=== PATIENT | female | born 1940 | race Caucasian/White ===

== ENCOUNTER 2018-06-17 10:12 | Day surgery (SDC) | payer OTHER, BC ==
[2018-06-17 10:59] VITALS: BMI 39.6
[2018-06-17 11:57] VITALS: TEMP 97.8
[2018-06-17 13:52] VITALS: BP 149/80; PULSE 61
--- NOTE | 2018-06-18 15:27 | PATH ---
Surgical Pathology Report Patient Name: AZUCENA KAPLAN [facility]. Rec. #: [id number] /Age/Gender: 1940 (Age: 77) / F Account: [id number] Location: U-ENDOSCOPY Taken: 06/17/2018 Received: 06/17/2018 Reported: 06/18/2018 Physicians: Cr Marte M.D. Specimen(s) Received A: BX CECUM POLYP B: BX LEFT COLON Clinical History Screening, diarrhea Postoperative diagnosis: Diverticulosis, colon polyp, rule out colitis Final Diagnosis A. CECUM, POLYP, POLYPECTOMY: TUBULAR ADENOMA. B. SIGMOID AND LEFT COLON, BIOPSY: COLONIC MUCOSA WITH INTRAEPITHELIAL LYMPHOCYTOSIS AND INCREASED LYMPHOPLASMACYTIC INFILTRATE WITHIN LAMINA PROPRIA COMPATIBLE WITH CHRONIC LYMPHOCYTIC/MICROSCOPIC COLITIS IN A CONCORDANT CLINICAL SETTING. Electronically Signed Elysia Serna M.D. Gross Description A. Received in formalin, labeled "polyp from cecum" are 2 armendariz, polypoid portions of soft tissue measuring 0.5 and 0.7 cm. in greatest dimension. The specimens are submitted in toto in one cassette. B. Received in formalin, labeled "biopsy left colon and sigmoid" are 3 armendariz, irregular portions of soft tissue ranging from 0.2-0.4 cm. in greatest dimension. The specimens are submitted in toto in one cassette. /06/17/2018 saudi06/17/2018
== END 2018-06-17 13:25 | disposition home or self-care (01) ==
LOC: JASU-ENDO 10:12
PROVIDERS: ATTEND Internal Medicine Gastroenterology
PROC: 0DBM8ZX Excision of Descending Colon, Via Natural or Artificial Opening Endoscopic, Diagnostic (ICD-10-PCS; 2018-06-17)
PROC: 0DBN8ZX Excision of Sigmoid Colon, Via Natural or Artificial Opening Endoscopic, Diagnostic (ICD-10-PCS; 2018-06-17)
PROC: 0DBH8ZX Excision of Cecum, Via Natural or Artificial Opening Endoscopic, Diagnostic (ICD-10-PCS; principal; 2018-06-17 11:15)
DX: D12.0 Benign neoplasm of cecum (principal); R19.7 Diarrhea, unspecified; K57.30 Diverticulosis of large intestine without perforation or abscess without bleeding; K63.89 Other specified diseases of intestine; I10 Essential (primary) hypertension; E03.9 Hypothyroidism, unspecified
CPT/HCPCS: 88305-TC

== ENCOUNTER 2020-05-04 15:16 | Emergency (ER) | payer OTHER, BC ==
[2020-05-04] MEDS ORDERED: HEPARIN NA (PORCINE) 5,000 UNITS/ML 1ML VIAL IVPUSH PRN (15:26)
[2020-05-04] MEDS ORDERED: ASPIRIN 325 MG ENTERIC COATED TABLET (FP) PO ONE (15:26)
[2020-05-04] MEDS ORDERED: ATORVASTATIN CA 80 MG TABLET (FP) PO ONE (15:27)
[2020-05-04] MEDS ORDERED: ASPIRIN 81 MG CHEWABLE TABLETS ONE (15:30)
[2020-05-04] MEDS ORDERED: HEPARIN NA (PORCINE) 5,000 UNITS/ML 1ML VIAL ONE (15:31)
[2020-05-04] MEDS ORDERED: ONDANSETRON 4 MG/2 ML VIAL IVPUSH ONE (15:31)
[2020-05-04] MEDS ORDERED: ATORVASTATIN CA 80 MG TABLET (FP) ONE (15:31)
--- NOTE | 2020-05-04 15:32 | PDOC ---
Documentation entered by Francia Steen SCRIBE, acting as scribe for Aníbal Rosario MD. Aníbal Rosario MD: This documentation has been prepared by the Enio bhakta Ana, SCRIBE, under my direction and personally reviewed by me in its entirety. I confirm that the documentation accurately reflects all work, treatment, procedures, and medical decision making performed by me. Attending Attestation - Resident Resident Name: Andrew Holloway - ED Attending Attestation I have performed the following: I have examined & evaluated the patient, The case was reviewed & discussed with the resident, I agree w/resident's findings & plan, Exceptions are as noted - HPI HPI: 05/04/20 15:19 Patient is a 79 year old female with a significant past medical history of hypercholesterolemia, hypothyroid, hyperlipidemia, OA, colitis, tonsillectomy, and hypertension, who presents to the ED with nausea, vomiting, and lightheadedness. Pt was shopping when her symptoms began. Per EMS, pt was bradycardic to 30s in the field with otherwise normal vitals. EKG unable to obtain in field. Allergies: Sulfonamide antibiotics PCP: Dr. Johnson GI: Dr. Marte - Physicial Exam PE: 05/04/20 15:21 See resident exam - Critical Care Time Total Critical Care Time: 30 Critical Care Statement: The care of this patient involved high complexity decision making to prevent further life threatening deterioration of the patient's condition and/or to evaluate & treat vital organ system(s) failure or risk of failure. - Medical Decision Making 05/04/20 15:37 79 F with STEMI. - Aspirin, statin, brilinta, heparin - Pt accepted to [facility] lab[facility] by Dr. Quesada, interventional cards Pt's brazer crawler torch, min [place], awaiting callback 05/04/20 15:54 Pt has departed ED Discharge - Discharge Information Problems reviewed: Yes Clinical Impression/Diagnosis: STEMI (ST elevation myocardial infarction) Condition: Critical Disposition: TRANSFER ACUTE CARE/OTHER HOSP - Follow up/Referral - Patient Discharge Instructions - Post Discharge Activity
[2020-05-04] MEDS ORDERED: TICAGRELOR 60 MG TABLET PO ONE (15:39)
[2020-05-04] MEDS ORDERED: TICAGRELOR 90 MG TABLET PO ONE (15:42)
--- NOTE | 2020-05-04 15:56 | PDOC ---
History of Present Illness - General Stated Complaint: Weakness Time Seen by Provider: 05/04/20 15:19 Past History - Medical History Allergies/Adverse Reactions: Allergies Allergy/AdvReac Type Severity Reaction Status Date / Time Sulfa (Sulfonamide Allergy Mild Hives Verified 12/02/13 10:52 Antibiotics) Home Medications: Ambulatory Orders Levothyroxine [Synthroid -] 100 mcg PO DAILY 07/09/13 Liothyronine Sodium [Cytomel -] 5 mcg PO DAILY 07/09/13 Nebivolol HCl [Bystolic] 5 mg PO DAILY 07/09/13 Cholecalciferol (Vitamin D3) [Vitamin D3 -] 2,000 unit PO HS #0 tab 12/04/13 Cyclosporine [Restasis] 1 each OP DAILY 06/17/18 Bismuth Subsalicylate [Pepto-Bismol -] 1 tab PO DAILY PRN 01/19/19 Eliquis 5 mg PO BID 02/22/20 Anemia: No Asthma: Yes 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) Cardiac Disorders: Yes (afib -on eliquis) CVA: No COPD: No CHF: No Dementia: No Diabetes: No GI Disorders: Yes (colitis) Disorders: No HTN: Yes Hypercholesterolemia: Yes Liver Disease: No Seizures: No Thyroid Disease: Yes (HYPO) - Surgical History Abdominal Surgery: Yes (ECTOPIC X 2) Appendectomy: No Cardiac Surgery: No Cholecystectomy: No Lung Surgery: No Neurologic Surgery: No Orthopedic Surgery: Yes (ORIF L WRIST) - Psycho-Social/Smoking History Smoking Status: No Smoking History: Former smoker Have you smoked in the past 12 months: No Number of Cigarettes Smoked Daily: 0 If you are a former smoker, when did you quit?: 2001 Cardiac Specific PMH - Complaint Specific PMHX Pacemaker: No *Physical Exam - Vital Signs Last Vital Signs Temp Pulse Resp BP Pulse Ox 98.7 F 52 L 18 138/72 98 05/04/20 15:56 05/04/20 15:56 05/04/20 15:56 05/04/20 15:56 05/04/20 15:30 ED Treatment Course - LABORATORY CBC & Chemistry Diagram: 05/04/20 15:30 05/04/20 15:30 - ADDITIONAL ORDERS Additional order review: Laboratory Results 05/04/20 05/04/20 05/04/20 15:31 15:30 15:30 PT with INR INR PTT (Actin FS) Sodium 142 Potassium 4.5 Chloride 111 H Carbon Dioxide 19 L Anion Gap 12 BUN 19.6 H Creatinine 1.3 Est GFR (CKD-EPI)AfAm 45.83 Est GFR (CKD-EPI)NonAf 39.54 POC Glucometer 215 Random Glucose 202 H Calcium 8.7 Total Bilirubin 0.4 AST 24 ALT 25 Alkaline Phosphatase 86 Creatine Kinase 79 Troponin I 0.09 H Total Protein 6.9 Albumin 3.3 L Blood Type O POSITIVE Antibody Screen Negative 05/04/20 15:30 PT with INR 15.10 H INR 1.28 H PTT (Actin FS) 30.5 Sodium Potassium Chloride Carbon Dioxide Anion Gap BUN Creatinine Est GFR (CKD-EPI)AfAm Est GFR (CKD-EPI)NonAf POC Glucometer Random Glucose Calcium Total Bilirubin AST ALT Alkaline Phosphatase Creatine Kinase Troponin I Total Protein Albumin Blood Type Antibody Screen 05/04/20 05/04/20 15:31 15:30 RBC 4.86 MCV 86.9 MCHC 32.4 RDW 14.4 MPV 9.9 D Neutrophils % 65.5 Lymphocytes % 25.4 Monocytes % 7.3 Eosinophils % 1.4 Basophils % 0.4 POC Glucometer 215 - RADIOLOGY Radiology Studies Ordered: Category Date Time Status CHEST X-RAY PORTABLE* [RAD] Stat Radiology 05/04/20 15:23 Ordered - Medications Given in the ED: ED Medications Discontinued Medications Generic Name Dose Route Start Last Admin Trade Name Freq PRN Reason Stop Dose Admin Aspirin 325 mg 05/04/20 15:26 05/04/20 15:54 Ecotrin - PO 05/04/20 15:27 325 mg ONCE ONE Administration Atorvastatin Calcium 80 mg 05/04/20 15:27 05/04/20 15:55 Lipitor - PO 05/04/20 15:28 80 mg ONCE ONE Administration Heparin Sodium (Porcine) 5,000 unit 05/04/20 15:26 05/04/20 15:55 Heparin - IVPUSH 5,000 unit PRN PRN Administration Heparin Ondansetron HCl 4 mg 05/04/20 15:31 05/04/20 15:55 Zofran Injection IVPUSH 05/04/20 15:32 4 mg ONCE ONE Administration Ticagrelor 180 mg 05/04/20 15:39 05/04/20 15:55 Brilinta PO 05/04/20 15:40 180 mg ONCE ONE Administration Medical Decision Making - Medical Decision Making 05/04/20 15:54 79F a-fib on eliquis HTN HLD hypothyroid presenting today with fatigue, weakness, diaphoresis that started approximately 1 hour prior to arrival. No LOC. Per EMS pt was feeling week at [facility]. En route difficulty to obtain blood pressure, and pt's HR was bradycardic to the 40s. Pt given atropine with increase in heart rate. Pt took all of her morning doses of medications today. On arrival, pt assessed immediately by myself, attending, and staff. HR varying between 40s-60s. BP 140s/70s. Pt alert, oriented, protecting airway, CTAB, diaphoretic. No abdominal TTP. No leg swelling. Radial/DP pulses 2+ bilaterally. Heart regular rate and rhythm. No back pain. PERRLA. Head atraumatic/normocephalic. EKG obtained at bedside showed 49 bpm, ST elevation in II, III aVF, V3-V6, QTc 422, concerning for inferolateral STEMI. [facility] transfer center contacted. [employer] transportation arranged. Case d/w Dr. Quesada (STEMI attending) who accepts the patient in transfer. Pt started on aspirin 324mg, lipitor 80mg, heparin 5000 units, brilinta 180mg. Discharge - Discharge Information Problems reviewed: Yes Clinical Impression/Diagnosis: STEMI (ST elevation myocardial infarction) Condition: Critical Disposition: TRANSFER ACUTE CARE/OTHER HOSP - Follow up/Referral - Patient Discharge Instructions - Post Discharge Activity
[2020-05-04 16:11] LABS: BASO % 0.4 % (0-2.0); EOS % 1.4 % (0-4.5); HEMATOCRIT 42.2 % (32.4-45.2); HEMOGLOBIN 13.7 GM/dL (10.7-15.3); LYMPH % 25.4 % (8-40); MCH 28.1 pg (25.7-33.7); MCHC 32.4 g/dl (32.0-36.0); MEAN CELL VOLUME 86.9 fl (80-96); MEAN PLT VOLUME 9.9 fl (7.5-11.1); MONO % 7.3 % (3.8-10.2); NEUT % 65.5 % (42.8-82.8); PLATELET COUNT 260 K/MM3 (134-434); RBC 4.86 M/mm3 (3.60-5.2); RDW 14.4 % (11.6-15.6); WHITE BLOOD COUNT 9.8 K/mm3 (4.0-10.0)
[2020-05-04 16:15] VITALS: BMI 40.1
[2020-05-04 16:15] LABS: INR 1.28 (0.83-1.09); PROTHROMBIN TIME (PATIENT) 15.1 SEC (9.7-13.0)
[2020-05-04 16:17] LABS: ACTIVATED PTT 30.5 SECONDS (25.2-36.5)
[2020-05-04 16:53] LABS: ALBUMIN 3.3 g/dl (3.4-5.0); BILIRUBIN,TOTAL 0.4 mg/dL (0.2-1); BLOOD UREA NITROGEN 19.6 mg/dL (7-18); CALCIUM 8.7 mg/dL (8.5-10.1); CREATININE 1.3 mg/dL (0.55-1.3); POTASSIUM 4.5 mmol/L (3.5-5.1); TOT PROT 6.9 g/dl (6.4-8.2)
[2020-05-04 17:59] VITALS: BP 138/72; PULSE 52; TEMP 98.7
[2020-05-04] MEDS ORDERED: TICAGRELOR 60 MG TABLET PO SCH (22:00)
--- NOTE | 2020-05-05 12:13 | EKG ---
Test Reason : Blood Pressure : / mmHG Vent. Rate : 049 BPM Atrial Rate : 070 BPM P-R Int : 000 ms QRS Dur : 082 ms QT Int : 468 ms P-R-T Axes : 000 012 098 degrees QTc Int : 422 ms ATRIAL FIBRILLATION WITH SLOW VENTRICULAR RESPONSE ST ELEVATION CONSIDER INFERIOR INJURY OR ACUTE INFARCT ST ELEVATION CONSIDER ANTERIOR INJURY OR ACUTE INFARCT ACUTE [place] / STEMI Consider right ventricular involvement in acute inferior infarct ABNORMAL ECG WHEN COMPARED WITH ECG OF 02-DEC-2013 12:00, SIGNIFICANT CHANGES HAVE OCCURRED Confirmed by JF HAYWARD MD ([id number]) on 05/05/2020 12:13:04 PM Referred By: Confirmed By:JF HAYWARD MD
== END 2020-05-04 15:55 | disposition short-term general hospital (02) ==
LOC: JER 15:16
PROC: 3E0333Z Introduction of Anti-inflammatory into Peripheral Vein, Percutaneous Approach (ICD-10-PCS; principal; 2020-05-04)
DX: I21.3 ST elevation (STEMI) myocardial infarction of unspecified site (principal)
CPT/HCPCS: 36415; 80053; 82550; 82962; 84484; 85025; 85610; 85730; 86850; 86900; 86901; 93005; 93010; 99291; J1644

== ENCOUNTER 2020-11-08 04:25 | Day surgery (SDC) | payer OTHER, BC ==
[2020-11-07 12:40] VITALS: BMI 38.2
[2020-11-08] MEDS ORDERED: ACETAMINOPHEN 500 MG TABLET (FP) PO PRN (09:17)
[2020-11-08] MEDS ORDERED: LACTATED RINGERS SOLUTION 1,000 ML IV SCH (09:30)
[2020-11-08] MEDS ORDERED: MIDAZOLAM HCL 2 MG/2 ML SINGLE DOSE VIAL ONE (09:35)
[2020-11-08] MEDS ORDERED: PROPOFOL 20 ML ONE (09:35)
[2020-11-08] MEDS ORDERED: ceFAZolin SODIUM 1 GM VIAL ONE (09:44)
[2020-11-08] MEDS ORDERED: SODIUM CHLORIDE 0.9% P/F 10 ML VIAL IJ ONE (09:44)
[2020-11-08] MEDS ORDERED: LIDOCAINE HCL/PF 2% SDV 5ML VIAL ONE (09:46)
[2020-11-08] MEDS ORDERED: ceFAZolin SODIUM 1 GM VIAL IVPB ONE (09:50)
[2020-11-08] MEDS ORDERED: KETOROLAC TROMETHAMINE 30 MG/1 ML VIAL ONE (09:56)
[2020-11-08 12:09] VITALS: BP 124/83; PULSE 72; TEMP 96.4
== END 2020-11-08 12:46 | disposition home or self-care (01) ==
LOC: JASU-SURG 04:25
PROVIDERS: ATTEND Urology
PROC: 0TF3XZZ Fragmentation in Right Kidney Pelvis, External Approach (ICD-10-PCS; principal; 2020-11-08 09:00)
DX: N20.0 Calculus of kidney (principal)

== ENCOUNTER 2022-03-15 04:36 | Day surgery (SDC) | payer OTHER, BC ==
[2022-03-13 15:22] VITALS: BMI 39.9
[2022-03-15] MEDS ORDERED: ETOMIDATE 20 MG/10 ML AMPUL IVPUSH ONE (10:37)
[2022-03-15 11:21] VITALS: TEMP 98.7
[2022-03-15 12:11] VITALS: BP 155/78; PULSE 90
== END 2022-03-15 12:24 | disposition home or self-care (01) ==
LOC: JASU-ENDO 04:36
PROVIDERS: ATTEND Internal Medicine Gastroenterology
PROC: 0DJD8ZZ Inspection of Lower Intestinal Tract, Via Natural or Artificial Opening Endoscopic (ICD-10-PCS; principal; 2022-03-15 11:00)
DX: Z12.11 Encounter for screening for malignant neoplasm of colon (principal); Z86.010 Personal history of colon polyps; K57.30 Diverticulosis of large intestine without perforation or abscess without bleeding

== ENCOUNTER 2023-08-01 12:50 | Emergency (ER) | payer OTHER, BC ==
[2023-08-01] MEDS ORDERED: MECLIZINE HCL 25 MG TABLET (FP) PO ONE (13:50)
[2023-08-01] MEDS ORDERED: METOCLOPRAMIDE HCL INJECTION 10 MG/2 ML VIAL IVPB ONE (13:50)
[2023-08-01 13:57] VITALS: RESP 18; BMI 37.6
[2023-08-01 14:14] LABS: BASO % 0.8 % (0-2.0); EOS % 2.1 % (0-4.5); HEMATOCRIT 30.2 % (32.4-45.2); HEMOGLOBIN 10.2 GM/dL (10.7-15.3); MCH 30.5 pg (25.7-33.7); MCHC 33.7 g/dl (32.0-36.0); MEAN CELL VOLUME 90.5 fl (80-96); MEAN PLT VOLUME 9.6 fl (7.5-11.1); MONO % 11.5 % (3.8-10.2); NEUT % 53.6 % (42.8-82.8); PLATELET COUNT 209 10^3/uL (134-434); RBC 3.33 M/mm3 (3.60-5.2); RDW 14.9 % (11.6-15.6); WHITE BLOOD COUNT 7.9 K/mm3 (4.0-10.0)
[2023-08-01 14:29] LABS: POTASSIUM 4.4 mmol/L (3.5-5.1)
[2023-08-01 14:31] LABS: CALCIUM 9.2 mg/dL (8.5-10.1)
[2023-08-01 14:32] LABS: ALBUMIN 3.3 g/dl (3.4-5.0); BLOOD UREA NITROGEN 23.6 mg/dL (7-18); MAGNESIUM 2.2 mg/dL (1.8-2.4)
[2023-08-01 14:37] LABS: BILIRUBIN,TOTAL 0.4 mg/dL (0.2-1); TOT PROT 6.7 g/dl (6.4-8.2)
[2023-08-01] MEDS ORDERED: MECLIZINE HCL 25 MG TABLET (FP) ONE (14:39)
[2023-08-01] MEDS ORDERED: METOCLOPRAMIDE HCL INJECTION 10 MG/2 ML VIAL ONE (14:39)
[2023-08-01 17:40] LABS: EPI CELLS 7 /uL (0-25.1); HYALINE CASTS 0 /uL (0-3.1); URINE APPEARANCE CLEAR; URINE BACTERIA 8316 /uL (0-1359); URINE BILIRUBIN NEGATIVE (NEGATIVE); URINE COLOR YELLOW; URINE GLUCOSE (UA) NEGATIVE (NEGATIVE); URINE KETONE NEGATIVE (NEGATIVE); URINE LEUK ESTERASE 1+ (NEGATIVE); URINE NITRITE NEGATIVE (NEGATIVE); URINE PROTEIN NEGATIVE (NEGATIVE); URINE RBC 12 /uL (0-23.9); URINE UROBILINOGEN 0.2 mg/dL (0.2-1.0); URINE WBC 41 /uL (0-25.8)
[2023-08-01 18:07] VITALS: BP 114/42; PULSE 65; TEMP 97.9
== END 2023-08-01 18:47 | disposition home or self-care (01) ==
LOC: JER 12:50
PROC: 3E033GC Introduction of Other Therapeutic Substance into Peripheral Vein, Percutaneous Approach (ICD-10-PCS; principal; 2023-08-01)
DX: R42 Dizziness and giddiness (principal); R11.0 Nausea; Z20.822 Contact with and (suspected) exposure to COVID-19
CPT/HCPCS: 0241U-QW; 36415; 70450-TC; 71045-TC-FY; 80053; 81003; 83735; 84443; 84484; 85025; 87086; 87186; 93005; 93010; 99285-25

== ENCOUNTER 2023-08-08 11:07 | Inpatient (IN) | payer OTHER, BC ==
[2023-08-08] MEDS ORDERED: LIDOCAINE 5% TOPICAL PATCH TP ONE (12:46)
[2023-08-08] MEDS ORDERED: ACETAMINOPHEN 1000 MG/100 ML BAG IVPB ONE (12:46)
[2023-08-08] MEDS ORDERED: ACETAMINOPHEN INJECTION 100 ML IVPB ONE (12:56)
[2023-08-08] MEDS ORDERED: LIDOCAINE 4% PATCH TP ONE (12:56)
[2023-08-08 13:56] LABS: BASO % 0.4 % (0-2.0); EOS % 0.2 % (0-4.5); HEMATOCRIT 26.3 % (32.4-45.2); HEMOGLOBIN 8.2 GM/dL (10.7-15.3); LYMPH % 11.9 % (8-40); MCH 28.8 pg (25.7-33.7); MCHC 31.2 g/dl (32.0-36.0); MEAN CELL VOLUME 92.4 fl (80-96); MEAN PLT VOLUME 10.1 fl (7.5-11.1); MONO % 9.4 % (3.8-10.2); NEUT % 78.1 % (42.8-82.8); PLATELET COUNT 258 10^3/uL (134-434); RBC 2.85 M/mm3 (3.60-5.2); RDW 15.3 % (11.6-15.6); WHITE BLOOD COUNT 13.9 K/mm3 (4.0-10.0)
[2023-08-08 14:03] LABS: INR 1.61 (0.83-1.09); PROTHROMBIN TIME (PATIENT) 18.6 SEC (9.7-13.0)
[2023-08-08 14:06] LABS: ACTIVATED PTT 31.1 SECONDS (25.2-36.5)
[2023-08-08 14:38] LABS: POTASSIUM 4.2 mmol/L (3.5-5.1)
[2023-08-08 14:40] LABS: CALCIUM 9.3 mg/dL (8.5-10.1)
[2023-08-08 14:41] LABS: ALBUMIN 3.6 g/dl (3.4-5.0); BLOOD UREA NITROGEN 29.7 mg/dL (7-18)
[2023-08-08 14:44] LABS: CREATININE 1.1 mg/dL (0.55-1.3)
[2023-08-08 14:45] LABS: BILIRUBIN,TOTAL 0.7 mg/dL (0.2-1); TOT PROT 7.1 g/dl (6.4-8.2)
[2023-08-08 15:15] LABS: EPI CELLS 26 /uL (0-25.1); HYALINE CASTS 1 /uL (0-3.1); PH,URINE 5.5 (5.0-8.0); URINE APPEARANCE CLEAR; URINE BACTERIA >9,000 /uL (0-1359); URINE BILIRUBIN NEGATIVE (NEGATIVE); URINE COLOR YELLOW; URINE GLUCOSE (UA) NEGATIVE (NEGATIVE); URINE KETONE NEGATIVE (NEGATIVE); URINE LEUK ESTERASE 1+ (NEGATIVE); URINE NITRITE POSITIVE (NEGATIVE); URINE PROTEIN NEGATIVE (NEGATIVE); URINE RBC 9 /uL (0-23.9); URINE WBC 100 /uL (0-25.8)
[2023-08-08] MEDS ORDERED: PANTOPRAZOLE SODIUM 40 MG VIAL ONE (17:19)
[2023-08-08] MEDS: PANTOPRAZOLE SODIUM 40 MG VIAL IVPUSH SCH (17:27)
[2023-08-08] MEDS: D5-1/2NS+20 MEQ KCL - 20 MEQ/1,000 ML INFUS.BAG IV SCH (17:27)
[2023-08-08 21:55] LABS: BASO % 0.4 % (0-2.0); EOS % 0.3 % (0-4.5); HEMATOCRIT 26.6 % (32.4-45.2); HEMOGLOBIN 8.5 GM/dL (10.7-15.3); LYMPH % 15.6 % (8-40); MCH 29.2 pg (25.7-33.7); MCHC 31.9 g/dl (32.0-36.0); MEAN CELL VOLUME 91.5 fl (80-96); MEAN PLT VOLUME 9.8 fl (7.5-11.1); MONO % 16.3 % (3.8-10.2); NEUT % 67.4 % (42.8-82.8); PLATELET COUNT 257 10^3/uL (134-434); RDW 15.4 % (11.6-15.6)
[2023-08-08] MEDS ORDERED: LIDOCAINE PATCH REMOVAL MC ONE (22:00)
[2023-08-08] MEDS: ATORVASTATIN CA 40 MG TABLET (FP) PO SCH (22:47)
[2023-08-09 00:23] VITALS: BMI 36.8
[2023-08-09] MEDS: LEVOTHYROXINE NA 125 MCG TABLET (FP) PO SCH (07:11)
[2023-08-09] MEDS: PANTOPRAZOLE SODIUM 40 MG VIAL IVPUSH SCH ×2 (09:49→22:23)
[2023-08-09] MEDS: EZETIMIBE 10 MG TABLET (FP) PO SCH (09:49)
[2023-08-09 12:52] LABS: BASO % 0.5 % (0-2.0); EOS % 0.5 % (0-4.5); HEMATOCRIT 21.3 % (32.4-45.2); LYMPH % 19.5 % (8-40); MCH 29.7 pg (25.7-33.7); MCHC 32.5 g/dl (32.0-36.0); MEAN CELL VOLUME 91.4 fl (80-96); MEAN PLT VOLUME 9.9 fl (7.5-11.1); MONO % 10.7 % (3.8-10.2); NEUT % 68.8 % (42.8-82.8); PLATELET COUNT 213 10^3/uL (134-434); RBC 2.33 M/mm3 (3.60-5.2); WHITE BLOOD COUNT 10.4 K/mm3 (4.0-10.0)
[2023-08-09 13:03] LABS: HEMOGLOBIN 6.9 GM/dL (10.7-15.3)
[2023-08-09 13:18] LABS: POTASSIUM 3.9 mmol/L (3.5-5.1)
[2023-08-09 13:21] LABS: CALCIUM 8.3 mg/dL (8.5-10.1)
[2023-08-09 13:22] LABS: BLOOD UREA NITROGEN 27.8 mg/dL (7-18); MAGNESIUM 2.2 mg/dL (1.8-2.4)
[2023-08-09 13:25] LABS: CREATININE 0.9 mg/dL (0.55-1.3)
[2023-08-09 13:26] LABS: BILIRUBIN,TOTAL 0.5 mg/dL (0.2-1); TOT PROT 6.1 g/dl (6.4-8.2)
[2023-08-09 13:35] LABS: ALBUMIN 2.9 g/dl (3.4-5.0)
[2023-08-09] MEDS: CEFTRIAXONE 1 GM in DEXTROSE 5%-WATER - 50 ML IVPB SCH (14:09)
[2023-08-09] MEDS ORDERED: COLCHICINE 0.6 MG TAB PO ONE ×2 (14:45→15:00)
[2023-08-09 21:22] LABS: URIC ACID 5.5 mg/dL (2.6-7.2)
[2023-08-09] MEDS: ATORVASTATIN CA 40 MG TABLET (FP) PO SCH (22:23)
[2023-08-10] MEDS: D5-1/2NS+20 MEQ KCL - 20 MEQ/1,000 ML INFUS.BAG IV SCH ×2 (01:51→06:07)
[2023-08-10] MEDS: LEVOTHYROXINE NA 125 MCG TABLET (FP) PO SCH (06:05)
[2023-08-10 09:04] LABS: BASO % 0.5 % (0-2.0); EOS % 0.5 % (0-4.5); HEMATOCRIT 23.6 % (32.4-45.2); HEMOGLOBIN 7.8 GM/dL (10.7-15.3); MCH 26.8 pg (25.7-33.7); MCHC 33.1 g/dl (32.0-36.0); MEAN CELL VOLUME 80.8 fl (80-96); MEAN PLT VOLUME 8.9 fl (7.5-11.1); MONO % 14.5 % (3.8-10.2); NEUT % 64.5 % (42.8-82.8); PLATELET COUNT 195 10^3/uL (134-434); RBC 2.91 M/mm3 (3.60-5.2); WHITE BLOOD COUNT 11.5 K/mm3 (4.0-10.0)
[2023-08-10] MEDS: PANTOPRAZOLE SODIUM 40 MG VIAL IVPUSH SCH ×2 (09:32→21:32)
[2023-08-10] MEDS: CEFTRIAXONE 1 GM in DEXTROSE 5%-WATER - 50 ML IVPB SCH (09:32)
[2023-08-10] MEDS: EZETIMIBE 10 MG TABLET (FP) PO SCH (09:33)
[2023-08-10 09:41] LABS: POTASSIUM 4.2 mmol/L (3.5-5.1)
[2023-08-10 09:52] LABS: BLOOD UREA NITROGEN 19.8 mg/dL (7-18); CALCIUM 8.5 mg/dL (8.5-10.1)
[2023-08-10 09:54] LABS: CREATININE 0.9 mg/dL (0.55-1.3)
[2023-08-10 09:55] LABS: ALBUMIN 2.7 g/dl (3.4-5.0)
[2023-08-10 09:56] LABS: BILIRUBIN,TOTAL 1.1 mg/dL (0.2-1); TOT PROT 5.8 g/dl (6.4-8.2); URIC ACID 4.9 mg/dL (2.6-7.2)
[2023-08-10] MEDS ORDERED: COLCHICINE 0.6 MG TAB PO SCH (10:00)
[2023-08-10 10:41] LABS: ANISOCYTOSIS 3+; MACROCYTOSIS 0
[2023-08-10 21:09] LABS: HEMATOCRIT 22.9 % (32.4-45.2); HEMOGLOBIN 7.6 GM/dL (10.7-15.3); MCH 27.1 pg (25.7-33.7); MCHC 33.3 g/dl (32.0-36.0); MEAN CELL VOLUME 81.3 fl (80-96); MEAN PLT VOLUME 9.3 fl (7.5-11.1); PLATELET COUNT 192 10^3/uL (134-434); RBC 2.82 M/mm3 (3.60-5.2); RDW 26.4 % (11.6-15.6); WHITE BLOOD COUNT 9.9 K/mm3 (4.0-10.0)
[2023-08-10] MEDS: ATORVASTATIN CA 40 MG TABLET (FP) PO SCH (21:31)
[2023-08-11] MEDS: LEVOTHYROXINE NA 125 MCG TABLET (FP) PO SCH (06:09)
[2023-08-11 09:17] LABS: BASO % 0.4 % (0-2.0); EOS % 1.3 % (0-4.5); HEMATOCRIT 21.9 % (32.4-45.2); HEMOGLOBIN 7.4 GM/dL (10.7-15.3); LYMPH % 19.8 % (8-40); MCH 27.3 pg (25.7-33.7); MCHC 33.7 g/dl (32.0-36.0); MEAN PLT VOLUME 8.9 fl (7.5-11.1); MONO % 13.3 % (3.8-10.2); NEUT % 65.2 % (42.8-82.8); PLATELET COUNT 196 10^3/uL (134-434); RDW 25.8 % (11.6-15.6); WHITE BLOOD COUNT 8.4 K/mm3 (4.0-10.0)
[2023-08-11] MEDS: PANTOPRAZOLE SODIUM 40 MG VIAL IVPUSH SCH ×2 (09:23→21:32)
[2023-08-11] MEDS: CEFTRIAXONE 1 GM in DEXTROSE 5%-WATER - 50 ML IVPB SCH (09:23)
[2023-08-11] MEDS: EZETIMIBE 10 MG TABLET (FP) PO SCH (09:23)
[2023-08-11] MEDS: D5-1/2NS+20 MEQ KCL - 20 MEQ/1,000 ML INFUS.BAG IV SCH ×2 (09:31→18:07)
[2023-08-11 09:47] LABS: POTASSIUM 3.9 mmol/L (3.5-5.1)
[2023-08-11 09:50] LABS: CALCIUM 8.4 mg/dL (8.5-10.1)
[2023-08-11 09:51] LABS: ALBUMIN 2.6 g/dl (3.4-5.0); BLOOD UREA NITROGEN 13.7 mg/dL (7-18)
[2023-08-11 09:56] LABS: BILIRUBIN,TOTAL 0.6 mg/dL (0.2-1); TOT PROT 5.7 g/dl (6.4-8.2)
[2023-08-11] MEDS ORDERED: PEG 3350/NA SULF BICARB CL/KCL 4000 ML SOLN.RECON PO ONE (17:00)
[2023-08-11 21:23] LABS: HEMATOCRIT 27.5 % (32.4-45.2); HEMOGLOBIN 8.8 GM/dL (10.7-15.3); MCH 26.4 pg (25.7-33.7); MCHC 31.9 g/dl (32.0-36.0); MEAN CELL VOLUME 82.7 fl (80-96); PLATELET COUNT 260 10^3/uL (134-434); RBC 3.32 M/mm3 (3.60-5.2); RDW 25.4 % (11.6-15.6); WHITE BLOOD COUNT 11.8 K/mm3 (4.0-10.0)
[2023-08-11] MEDS: ATORVASTATIN CA 40 MG TABLET (FP) PO SCH (21:32)
[2023-08-12] MEDS: LEVOTHYROXINE NA 125 MCG TABLET (FP) PO SCH (06:42)
[2023-08-12] MEDS: EZETIMIBE 10 MG TABLET (FP) PO SCH (09:27)
[2023-08-12] MEDS: CEFTRIAXONE 1 GM in DEXTROSE 5%-WATER - 50 ML IVPB SCH (09:30)
[2023-08-12] MEDS: PANTOPRAZOLE SODIUM 40 MG VIAL IVPUSH SCH (09:31)
[2023-08-12] MEDS: COLCHICINE 0.6 MG TAB PO SCH ×2 (17:22→17:24)
[2023-08-12] MEDS: D5-1/2NS+20 MEQ KCL - 20 MEQ/1,000 ML INFUS.BAG IV SCH (17:40)
[2023-08-12] MEDS: ACETAMINOPHEN 325 MG TABLET (FP) PO PRN (17:41)
[2023-08-12 21:00] LABS: HEMATOCRIT 22.5 % (32.4-45.2); HEMOGLOBIN 7.3 GM/dL (10.7-15.3); MCH 26.8 pg (25.7-33.7); MCHC 32.6 g/dl (32.0-36.0); MEAN CELL VOLUME 82.1 fl (80-96); MEAN PLT VOLUME 8.9 fl (7.5-11.1); PLATELET COUNT 238 10^3/uL (134-434); RBC 2.74 M/mm3 (3.60-5.2); RDW 24.5 % (11.6-15.6); WHITE BLOOD COUNT 9.8 K/mm3 (4.0-10.0)
[2023-08-12] MEDS: ATORVASTATIN CA 40 MG TABLET (FP) PO SCH (21:40)
[2023-08-13] MEDS: LEVOTHYROXINE NA 125 MCG TABLET (FP) PO SCH (06:54)
[2023-08-13 10:00] LABS: ALBUMIN 2.7 g/dl (3.4-5.0); CREATININE 0.9 mg/dL (0.55-1.3); POTASSIUM 3.9 mmol/L (3.5-5.1)
[2023-08-13] MEDS ORDERED: COLCHICINE 0.6 MG TAB PO SCH (10:00)
[2023-08-13 10:01] LABS: BLOOD UREA NITROGEN 11.8 mg/dL (7-18)
[2023-08-13 10:03] LABS: CALCIUM 8.3 mg/dL (8.5-10.1)
[2023-08-13 10:08] LABS: BILIRUBIN,TOTAL 0.4 mg/dL (0.2-1)
[2023-08-13] MEDS: PANTOPRAZOLE 20 MG TABLET PO SCH (10:45)
[2023-08-13] MEDS: CEFTRIAXONE 1 GM in DEXTROSE 5%-WATER - 50 ML IVPB SCH (10:45)
[2023-08-13] MEDS: EZETIMIBE 10 MG TABLET (FP) PO SCH (10:46)
[2023-08-13 12:08] LABS: BASO % 0.7 % (0-2.0); HEMATOCRIT 21.3 % (32.4-45.2); LYMPH % 17.2 % (8-40); MCH 26.5 pg (25.7-33.7); MCHC 31.9 g/dl (32.0-36.0); MEAN CELL VOLUME 83.2 fl (80-96); MEAN PLT VOLUME 8.5 fl (7.5-11.1); MONO % 10.6 % (3.8-10.2); NEUT % 69.5 % (42.8-82.8); PLATELET COUNT 235 10^3/uL (134-434); RBC 2.56 M/mm3 (3.60-5.2); RDW 23.8 % (11.6-15.6); WHITE BLOOD COUNT 7.5 K/mm3 (4.0-10.0)
[2023-08-13 12:22] LABS: HEMOGLOBIN 6.8 GM/dL (10.7-15.3)
[2023-08-13 12:39] LABS: ANISOCYTOSIS 2+; MACROCYTOSIS 0
[2023-08-13] MEDS: ACETAMINOPHEN 325 MG TABLET (FP) PO PRN (18:06)
[2023-08-13] MEDS: D5-1/2NS+20 MEQ KCL - 20 MEQ/1,000 ML INFUS.BAG IV SCH (19:50)
[2023-08-13 21:30] LABS: HEMATOCRIT 26.9 % (32.4-45.2); HEMOGLOBIN 8.9 GM/dL (10.7-15.3); MCH 27.6 pg (25.7-33.7); MCHC 33.1 g/dl (32.0-36.0); MEAN CELL VOLUME 83.4 fl (80-96); MEAN PLT VOLUME 8.9 fl (7.5-11.1); PLATELET COUNT 224 10^3/uL (134-434); RBC 3.23 M/mm3 (3.60-5.2); RDW 21.8 % (11.6-15.6); WHITE BLOOD COUNT 8.7 K/mm3 (4.0-10.0)
[2023-08-13] MEDS: ATORVASTATIN CA 40 MG TABLET (FP) PO SCH (21:49)
[2023-08-14] MEDS: LEVOTHYROXINE NA 125 MCG TABLET (FP) PO SCH (06:19)
[2023-08-14] MEDS: D5-1/2NS+20 MEQ KCL - 20 MEQ/1,000 ML INFUS.BAG IV SCH ×2 (06:41→18:02)
[2023-08-14] MEDS: CEFTRIAXONE 1 GM in DEXTROSE 5%-WATER - 50 ML IVPB SCH (09:42)
[2023-08-14] MEDS: PANTOPRAZOLE 20 MG TABLET PO SCH (09:43)
[2023-08-14] MEDS: EZETIMIBE 10 MG TABLET (FP) PO SCH (09:44)
[2023-08-14 10:15] LABS: BASO % 0.6 % (0-2.0); HEMOGLOBIN 9.2 GM/dL (10.7-15.3); MCH 27.5 pg (25.7-33.7); MCHC 32.9 g/dl (32.0-36.0); MEAN CELL VOLUME 83.7 fl (80-96); MEAN PLT VOLUME 8.4 fl (7.5-11.1); MONO % 8.6 % (3.8-10.2); NEUT % 67.8 % (42.8-82.8); PLATELET COUNT 244 10^3/uL (134-434); RBC 3.34 M/mm3 (3.60-5.2); WHITE BLOOD COUNT 8.3 K/mm3 (4.0-10.0)
[2023-08-14 11:00] LABS: POTASSIUM 4.2 mmol/L (3.5-5.1)
[2023-08-14 11:12] LABS: CALCIUM 8.6 mg/dL (8.5-10.1)
[2023-08-14 11:13] LABS: ALBUMIN 2.6 g/dl (3.4-5.0); BLOOD UREA NITROGEN 15.5 mg/dL (7-18)
[2023-08-14 11:16] LABS: CREATININE 0.9 mg/dL (0.55-1.3)
[2023-08-14 11:17] LABS: BILIRUBIN,TOTAL 0.6 mg/dL (0.2-1)
[2023-08-14] MEDS: COLCHICINE 0.6 MG CAP PO SCH ×2 (12:46→18:17)
[2023-08-14] MEDS: ACETAMINOPHEN 325 MG TABLET (FP) PO PRN (17:56)
[2023-08-14 19:09] LABS: HEMATOCRIT 27.9 % (32.4-45.2); HEMOGLOBIN 9.1 GM/dL (10.7-15.3); MCH 27.1 pg (25.7-33.7); MCHC 32.5 g/dl (32.0-36.0); MEAN CELL VOLUME 83.5 fl (80-96); MEAN PLT VOLUME 8.7 fl (7.5-11.1); PLATELET COUNT 252 10^3/uL (134-434); RBC 3.35 M/mm3 (3.60-5.2); RDW 21.2 % (11.6-15.6); WHITE BLOOD COUNT 8.8 K/mm3 (4.0-10.0)
[2023-08-14] MEDS: ATORVASTATIN CA 40 MG TABLET (FP) PO SCH (21:37)
[2023-08-15] MEDS: LEVOTHYROXINE NA 125 MCG TABLET (FP) PO SCH (06:03)
[2023-08-15 08:41] LABS: BASO % 0.7 % (0-2.0); EOS % 4.4 % (0-4.5); HEMATOCRIT 26.1 % (32.4-45.2); HEMOGLOBIN 8.8 GM/dL (10.7-15.3); LYMPH % 20.9 % (8-40); MCH 27.9 pg (25.7-33.7); MCHC 33.6 g/dl (32.0-36.0); MEAN CELL VOLUME 83.2 fl (80-96); MEAN PLT VOLUME 8.8 fl (7.5-11.1); MONO % 10.4 % (3.8-10.2); NEUT % 63.6 % (42.8-82.8); PLATELET COUNT 241 10^3/uL (134-434); RBC 3.14 M/mm3 (3.60-5.2); RDW 21.3 % (11.6-15.6); WHITE BLOOD COUNT 7.7 K/mm3 (4.0-10.0)
[2023-08-15 09:04] LABS: POTASSIUM 4.6 mmol/L (3.5-5.1)
[2023-08-15 09:26] LABS: ALBUMIN 2.4 g/dl (3.4-5.0); CALCIUM 9.4 mg/dL (8.5-10.1)
[2023-08-15 09:28] LABS: BLOOD UREA NITROGEN 18.8 mg/dL (7-18)
[2023-08-15 09:31] LABS: BILIRUBIN,TOTAL 0.5 mg/dL (0.2-1); TOT PROT 5.5 g/dl (6.4-8.2)
[2023-08-15] MEDS ORDERED: COLCHICINE 0.6 MG CAP PO SCH (10:00)
[2023-08-15] MEDS: EZETIMIBE 10 MG TABLET (FP) PO SCH (10:22)
[2023-08-15] MEDS: PANTOPRAZOLE 20 MG TABLET PO SCH (10:22)
[2023-08-15] MEDS: CEFTRIAXONE 1 GM in DEXTROSE 5%-WATER - 50 ML IVPB SCH (11:03)
[2023-08-15] MEDS ORDERED: CEFUROXIME AXETIL 500 MG TABLET PO SCH (12:00)
[2023-08-15 14:00] VITALS: BP 158/75; PULSE 84; RESP 16; TEMP 97.5
== END 2023-08-15 15:11 | disposition home or self-care (01) | DRG 378 ==
LOC: JER 11:07 → JERBED 14:20 → J8W 20:48
PROVIDERS: ADMIT Family Medicine
PROC: 30233N1 Transfusion of Nonautologous Red Blood Cells into Peripheral Vein, Percutaneous Approach (ICD-10-PCS; principal; 2023-08-09)
PROC: 0DBH8ZX Excision of Cecum, Via Natural or Artificial Opening Endoscopic, Diagnostic (ICD-10-PCS; 2023-08-12)
PROC: 0DB98ZX Excision of Duodenum, Via Natural or Artificial Opening Endoscopic, Diagnostic (ICD-10-PCS; 2023-08-12)
PROC: 0DB68ZX Excision of Stomach, Via Natural or Artificial Opening Endoscopic, Diagnostic (ICD-10-PCS; 2023-08-12)
PROC: 0DB58ZX Excision of Esophagus, Via Natural or Artificial Opening Endoscopic, Diagnostic (ICD-10-PCS; 2023-08-12)
DX: K57.31 Diverticulosis of large intestine without perforation or abscess with bleeding (principal); D62 Acute posthemorrhagic anemia; I13.0 Hypertensive heart and chronic kidney disease with heart failure and stage 1 through stage 4 chronic kidney disease, or unspecified chronic kidney disease; I50.32 Chronic diastolic (congestive) heart failure; K25.9 Gastric ulcer, unspecified as acute or chronic, without hemorrhage or perforation; D12.0 Benign neoplasm of cecum; I48.91 Unspecified atrial fibrillation; E78.5 Hyperlipidemia, unspecified; K44.9 Diaphragmatic hernia without obstruction or gangrene; E03.9 Hypothyroidism, unspecified; I25.2 Old myocardial infarction; I25.10 Atherosclerotic heart disease of native coronary artery without angina pectoris; K57.90 Diverticulosis of intestine, part unspecified, without perforation or abscess without bleeding; K64.4 Residual hemorrhoidal skin tags; M10.9 Gout, unspecified; M19.011 Primary osteoarthritis, right shoulder; M19.021 Primary osteoarthritis, right elbow; N18.9 Chronic kidney disease, unspecified; E66.9 Obesity, unspecified; Z68.36 Body mass index [BMI] 36.0-36.9, adult; Z95.5 Presence of coronary angioplasty implant and graft
CPT/HCPCS: 0241U-QW; 36415; 36430; 73030-TC-RT-FY; 73070-TC-RT-FY; 74177-TC; 80053; 81003; 82272; 83605; 83735; 84443; 84550; 85025; 85027; 85610; 85651; 85730; 86140; 86850; 86900; 86901; 86922; 87086; 88305-TC; 93005; 93010; 93971; 97116-GP; 99285-25; P9058; Q9967

== ENCOUNTER 2023-09-11 12:36 | Inpatient (IN) | payer OTHER, BC ==
[2023-09-11 13:06] VITALS: BMI 37.6
[2023-09-11 14:28] LABS: BASO % 0.6 % (0-2.0); EOS % 1.6 % (0-4.5); HEMATOCRIT 31.6 % (32.4-45.2); LYMPH % 22.7 % (8-40); MCHC 31.7 g/dl (32.0-36.0); MEAN CELL VOLUME 85.1 fl (80-96); MEAN PLT VOLUME 9.2 fl (7.5-11.1); MONO % 9.3 % (3.8-10.2); NEUT % 65.8 % (42.8-82.8); PLATELET COUNT 219 10^3/uL (134-434); RBC 3.71 M/mm3 (3.60-5.2); RDW 18.4 % (11.6-15.6); WHITE BLOOD COUNT 9.9 K/mm3 (4.0-10.0)
[2023-09-11 14:36] LABS: INR 1.18 (0.83-1.09); PROTHROMBIN TIME (PATIENT) 13.7 SEC (9.7-13.0)
[2023-09-11 14:39] LABS: ACTIVATED PTT 30.2 SECONDS (25.2-36.5)
[2023-09-11 14:47] LABS: POTASSIUM 4.5 mmol/L (3.5-5.1)
[2023-09-11 14:50] LABS: CALCIUM 9.2 mg/dL (8.5-10.1)
[2023-09-11 14:51] LABS: ALBUMIN 3.6 g/dl (3.4-5.0); BLOOD UREA NITROGEN 33.9 mg/dL (7-18)
[2023-09-11 14:54] LABS: CREATININE 1.4 mg/dL (0.55-1.3)
[2023-09-11 14:56] LABS: BILIRUBIN,TOTAL 0.7 mg/dL (0.2-1); TOT PROT 7.5 g/dl (6.4-8.2)
[2023-09-11 15:05] LABS: LACTIC ACID 2.5 mmol/L (0.4-2.0)
[2023-09-11] MEDS ORDERED: SODIUM CHLORIDE 1,000 ML IV STA (16:46)
[2023-09-11 20:40] LABS: BASO % 0.7 % (0-2.0); EOS % 1.5 % (0-4.5); HEMATOCRIT 29.1 % (32.4-45.2); HEMOGLOBIN 9.5 GM/dL (10.7-15.3); LYMPH % 29.3 % (8-40); MCH 27.3 pg (25.7-33.7); MCHC 32.6 g/dl (32.0-36.0); MEAN CELL VOLUME 83.7 fl (80-96); MEAN PLT VOLUME 9.5 fl (7.5-11.1); MONO % 9.2 % (3.8-10.2); NEUT % 59.3 % (42.8-82.8); PLATELET COUNT 194 10^3/uL (134-434); RBC 3.47 M/mm3 (3.60-5.2); RDW 18.7 % (11.6-15.6)
[2023-09-11] MEDS: PANTOPRAZOLE SODIUM 40 MG VIAL IVPUSH SCH (23:53)
[2023-09-12 01:59] LABS: RETICULOCYTES 1.56 % (0.5-1.5)
[2023-09-12] MEDS: LEVOTHYROXINE NA 125 MCG TABLET (FP) PO SCH (06:39)
[2023-09-12 07:35] LABS: HEMATOCRIT 26.2 % (32.4-45.2); HEMOGLOBIN 8.5 GM/dL (10.7-15.3); MCH 27.3 pg (25.7-33.7); MCHC 32.3 g/dl (32.0-36.0); MEAN CELL VOLUME 84.5 fl (80-96); MEAN PLT VOLUME 9.6 fl (7.5-11.1); PLATELET COUNT 166 10^3/uL (134-434); RDW 18.2 % (11.6-15.6); WHITE BLOOD COUNT 7.6 K/mm3 (4.0-10.0)
[2023-09-12 08:18] LABS: ALBUMIN 2.9 g/dl (3.4-5.0); CALCIUM 8.3 mg/dL (8.5-10.1)
[2023-09-12 08:20] LABS: URIC ACID 6.2 mg/dL (2.6-7.2)
[2023-09-12 08:21] LABS: CREATININE 1.1 mg/dL (0.55-1.3)
[2023-09-12 08:23] LABS: BILIRUBIN,TOTAL 0.5 mg/dL (0.2-1); TOT PROT 6.1 g/dl (6.4-8.2)
[2023-09-12] MEDS: EZETIMIBE 10 MG TABLET (FP) PO SCH (09:05)
[2023-09-12] MEDS: CHOLECALCIFEROL (VIT D3) 1,000 UNIT (25 MCG) TABLET PO SCH (09:05)
[2023-09-12] MEDS: PANTOPRAZOLE SODIUM 40 MG VIAL IVPUSH SCH (09:05)
[2023-09-12 09:12] LABS: POTASSIUM 4.4 mmol/L (3.5-5.1)
[2023-09-12] MEDS ORDERED: IRON SUCROSE INJECTION 200 MG in SODIUM CHLORIDE 90 ML IVPB ONE (13:00)
[2023-09-12] MEDS ORDERED: BISACODYL 5 MG TABLET.DR (FP) PO ONE (16:00)
[2023-09-12] MEDS ORDERED: PEG 3350/NA SULF BICARB CL/KCL 4000 ML SOLN.RECON PO ONE (17:00)
[2023-09-12 19:42] LABS: HEMATOCRIT 30.4 % (32.4-45.2); HEMOGLOBIN 9.8 GM/dL (10.7-15.3); MCH 27.1 pg (25.7-33.7); MCHC 32.3 g/dl (32.0-36.0); MEAN CELL VOLUME 83.7 fl (80-96); MEAN PLT VOLUME 9.9 fl (7.5-11.1); PLATELET COUNT 217 10^3/uL (134-434); RBC 3.62 M/mm3 (3.60-5.2); RDW 18.3 % (11.6-15.6); WHITE BLOOD COUNT 10.2 K/mm3 (4.0-10.0)
[2023-09-13] MEDS: LEVOTHYROXINE NA 125 MCG TABLET (FP) PO SCH (06:16)
[2023-09-13 09:12] LABS: BASO % 0.6 % (0-2.0); EOS % 2.6 % (0-4.5); HEMATOCRIT 24.2 % (32.4-45.2); MCH 27.3 pg (25.7-33.7); MCHC 33.2 g/dl (32.0-36.0); MEAN CELL VOLUME 82.2 fl (80-96); MEAN PLT VOLUME 9.9 fl (7.5-11.1); NEUT % 57.8 % (42.8-82.8); PLATELET COUNT 168 10^3/uL (134-434); RBC 2.94 M/mm3 (3.60-5.2); RDW 18.7 % (11.6-15.6); WHITE BLOOD COUNT 6.2 K/mm3 (4.0-10.0)
[2023-09-13 09:21] LABS: POTASSIUM 4.1 mmol/L (3.5-5.1)
[2023-09-13 09:23] LABS: ALBUMIN 2.9 g/dl (3.4-5.0); CALCIUM 8.6 mg/dL (8.5-10.1); MAGNESIUM 1.9 mg/dL (1.8-2.4)
[2023-09-13 09:24] LABS: BLOOD UREA NITROGEN 18.9 mg/dL (7-18)
[2023-09-13 09:26] LABS: CREATININE 0.9 mg/dL (0.55-1.3); PHOSPHOROUS 3.2 mg/dL (2.5-4.9)
[2023-09-13 09:28] LABS: BILIRUBIN,TOTAL 0.5 mg/dL (0.2-1)
[2023-09-13] MEDS ORDERED: PANTOPRAZOLE 40 MG TABLET PO SCH (10:00)
[2023-09-13 10:19] VITALS: TEMP 97.1
[2023-09-13 10:42] VITALS: RESP 18
[2023-09-13] MEDS ORDERED: APIXABAN 2.5 MG TABLET PO SCH (12:30)
[2023-09-13] MEDS: EZETIMIBE 10 MG TABLET (FP) PO SCH (12:53)
[2023-09-13] MEDS: CHOLECALCIFEROL (VIT D3) 1,000 UNIT (25 MCG) TABLET PO SCH (12:53)
[2023-09-13] MEDS ORDERED: IRON SUCROSE INJECTION 200 MG in SODIUM CHLORIDE 90 ML IVPB ONE (13:00)
[2023-09-13 14:40] VITALS: BP 145/52; PULSE 75
[2023-09-14] MEDS ORDERED: IRON SUCROSE INJECTION 200 MG in SODIUM CHLORIDE 90 ML IVPB ONE (13:00)
== END 2023-09-13 15:38 | disposition home or self-care (01) | DRG 378 ==
LOC: JER 12:36 → JERBED 23:15 → J4S 09-12 02:19
PROVIDERS: ADMIT Internal Medicine; ATTEND Internal Medicine
PROC: 0W3P8ZZ Control Bleeding in Gastrointestinal Tract, Via Natural or Artificial Opening Endoscopic (ICD-10-PCS; principal; 2023-09-13 09:30)
DX: K57.91 Diverticulosis of intestine, part unspecified, without perforation or abscess with bleeding (principal); I50.32 Chronic diastolic (congestive) heart failure; N17.9 Acute kidney failure, unspecified; K63.3 Ulcer of intestine; I48.91 Unspecified atrial fibrillation; Z79.01 Long term (current) use of anticoagulants; E03.9 Hypothyroidism, unspecified; D64.9 Anemia, unspecified; I25.10 Atherosclerotic heart disease of native coronary artery without angina pectoris; M10.9 Gout, unspecified; D50.9 Iron deficiency anemia, unspecified; I11.0 Hypertensive heart disease with heart failure
CPT/HCPCS: 36415; 74174-TC; 76775-TC; 80053; 82550; 82728; 83540; 83550; 83605; 83735; 84100; 84484; 84550; 85025; 85027; 85045; 85610; 85730; 86850; 86900; 86901; 93005; 93010; 97116-GP; 97161-GP; 99285-25; J1756

== ENCOUNTER 2023-09-27 12:20 | Inpatient (IN) | payer OTHER, BC ==
[2023-09-27] MEDS ORDERED: ONDANSETRON 4 MG/2 ML VIAL IVPUSH ONE (14:16)
[2023-09-27] MEDS ORDERED: ONDANSETRON 4 MG/2 ML VIAL ONE (14:21)
[2023-09-27 14:23] LABS: INR 1.64 (0.83-1.09); PROTHROMBIN TIME (PATIENT) 18.9 SEC (9.7-13.0)
[2023-09-27 14:29] LABS: EOS % 1.3 % (0-4.5); HEMATOCRIT 27.7 % (32.4-45.2); HEMOGLOBIN 8.9 GM/dL (10.7-15.3); LYMPH % 14.6 % (8-40); MCH 27.4 pg (25.7-33.7); MEAN CELL VOLUME 85.8 fl (80-96); MEAN PLT VOLUME 9.8 fl (7.5-11.1); MONO % 11.1 % (3.8-10.2); PLATELET COUNT 253 10^3/uL (134-434); RBC 3.23 M/mm3 (3.60-5.2); RDW 17.4 % (11.6-15.6); WHITE BLOOD COUNT 9.9 K/mm3 (4.0-10.0)
[2023-09-27 15:08] LABS: CALCIUM 9.4 mg/dL (8.5-10.1)
[2023-09-27 15:09] LABS: ALBUMIN 3.1 g/dl (3.4-5.0); BLOOD UREA NITROGEN 25.8 mg/dL (7-18)
[2023-09-27 15:12] LABS: CREATININE 1.6 mg/dL (0.55-1.3)
[2023-09-27 15:13] LABS: BILIRUBIN,TOTAL 0.6 mg/dL (0.2-1); TOT PROT 6.8 g/dl (6.4-8.2)
[2023-09-27 15:13] LABS: ERYTHROCYTE SEDIMENTATION RATE 59 mm/hr (0-30)
[2023-09-27 16:05] LABS: PH,URINE 5.5 (5.0-8.0); URINE APPEARANCE CLEAR; URINE BILIRUBIN NEGATIVE (NEGATIVE); URINE COLOR YELLOW; URINE GLUCOSE (UA) NEGATIVE (NEGATIVE); URINE KETONE NEGATIVE (NEGATIVE); URINE LEUK ESTERASE NEGATIVE (NEGATIVE); URINE NITRITE NEGATIVE (NEGATIVE); URINE PROTEIN NEGATIVE (NEGATIVE); URINE UROBILINOGEN 0.2 mg/dL (0.2-1.0)
[2023-09-27 17:50] LABS: HEMATOCRIT 26.7 % (32.4-45.2); HEMOGLOBIN 8.6 GM/dL (10.7-15.3); MCHC 32.1 g/dl (32.0-36.0); MEAN CELL VOLUME 84.1 fl (80-96); MEAN PLT VOLUME 9.5 fl (7.5-11.1); PLATELET COUNT 235 10^3/uL (134-434); RBC 3.17 M/mm3 (3.60-5.2); RDW 17.6 % (11.6-15.6); WHITE BLOOD COUNT 10.3 K/mm3 (4.0-10.0)
[2023-09-27] MEDS ORDERED: PANTOPRAZOLE SODIUM 40 MG VIAL ONE (22:17)
[2023-09-27] MEDS: PANTOPRAZOLE SODIUM 40 MG VIAL IVPUSH SCH (22:34)
[2023-09-28] MEDS: LEVOTHYROXINE NA 125 MCG TABLET (FP) PO SCH (08:18)
[2023-09-28 08:55] LABS: HEMATOCRIT 32.8 % (32.4-45.2); HEMOGLOBIN 11.2 GM/dL (10.7-15.3); MCH 29.1 pg (25.7-33.7); MCHC 34.2 g/dl (32.0-36.0); MEAN CELL VOLUME 85.2 fl (80-96); MEAN PLT VOLUME 9.9 fl (7.5-11.1); PLATELET COUNT 174 10^3/uL (134-434); RBC 3.85 M/mm3 (3.60-5.2); RDW 15.3 % (11.6-15.6); WHITE BLOOD COUNT 8.4 K/mm3 (4.0-10.0)
[2023-09-28 09:09] LABS: POTASSIUM 4.1 mmol/L (3.5-5.1)
[2023-09-28 09:15] LABS: CALCIUM 9.1 mg/dL (8.5-10.1)
[2023-09-28] MEDS: EZETIMIBE 10 MG TABLET (FP) PO SCH (09:18)
[2023-09-28] MEDS: PANTOPRAZOLE SODIUM 40 MG VIAL IVPUSH SCH ×2 (09:18→21:39)
[2023-09-28 09:19] LABS: CREATININE 1.3 mg/dL (0.55-1.3)
[2023-09-28 19:49] VITALS: BMI 39.2
[2023-09-28] MEDS ORDERED: PNEUMOC 20-VAL CONJ-DIP CRM/PF 0.5 ML SYRINGE IM ONE (20:30)
[2023-09-28] MEDS: ATORVASTATIN CA 80 MG TABLET (FP) PO SCH (21:40)
[2023-09-29] MEDS: LEVOTHYROXINE NA 125 MCG TABLET (FP) PO SCH (06:15)
[2023-09-29] MEDS: PANTOPRAZOLE SODIUM 40 MG VIAL IVPUSH SCH ×2 (09:39→21:43)
[2023-09-29] MEDS: EZETIMIBE 10 MG TABLET (FP) PO SCH (09:39)
[2023-09-29] MEDS ORDERED: BISACODYL 5 MG TABLET.DR (FP) PO ONE (17:10)
[2023-09-29] MEDS ORDERED: PEG 3350/NA SULF BICARB CL/KCL 4000 ML SOLN.RECON PO ONE (17:10)
[2023-09-29] MEDS: ATORVASTATIN CA 80 MG TABLET (FP) PO SCH (21:42)
[2023-09-30] MEDS: LEVOTHYROXINE NA 125 MCG TABLET (FP) PO SCH (06:14)
[2023-09-30 07:44] LABS: BASO % 0.7 % (0-2.0); EOS % 3.9 % (0-4.5); HEMATOCRIT 33.9 % (32.4-45.2); HEMOGLOBIN 11.2 GM/dL (10.7-15.3); LYMPH % 18.7 % (8-40); MCH 28.3 pg (25.7-33.7); MCHC 33.1 g/dl (32.0-36.0); MEAN CELL VOLUME 85.6 fl (80-96); MEAN PLT VOLUME 9.7 fl (7.5-11.1); MONO % 14.8 % (3.8-10.2); NEUT % 61.9 % (42.8-82.8); PLATELET COUNT 167 10^3/uL (134-434); RBC 3.96 M/mm3 (3.60-5.2); RDW 15.9 % (11.6-15.6)
[2023-09-30] MEDS: PANTOPRAZOLE SODIUM 40 MG VIAL IVPUSH SCH (09:34)
[2023-09-30 10:24] LABS: ALBUMIN 2.6 g/dl (3.4-5.0); BLOOD UREA NITROGEN 15.1 mg/dL (7-18); CALCIUM 9.1 mg/dL (8.5-10.1); POTASSIUM 3.7 mmol/L (3.5-5.1); TOT PROT 5.6 g/dl (6.4-8.2)
[2023-09-30] MEDS: EZETIMIBE 10 MG TABLET (FP) PO SCH (11:18)
[2023-09-30] MEDS ORDERED: EPINEPHrine 1:10,000 (P-F SYR) 1 MG/10 ML DISP.SYRIN IVPUSH ONE (12:36)
[2023-09-30] MEDS ORDERED: EPINEPHrine 1:10,000 (P-F SYR) 1 MG/10 ML DISP.SYRIN ONE (14:21)
[2023-09-30] MEDS: TORSEMIDE 10 MG TABLET PO SCH (17:29)
[2023-09-30] MEDS: AMIODARONE HCL 200 MG TABLET PO SCH (17:29)
[2023-09-30] MEDS: ATORVASTATIN CA 80 MG TABLET (FP) PO SCH (21:17)
[2023-10-01] MEDS: LEVOTHYROXINE NA 125 MCG TABLET (FP) PO SCH (06:27)
[2023-10-01 07:21] LABS: HEMATOCRIT 32.6 % (32.4-45.2); MCHC 33.9 g/dl (32.0-36.0); MEAN CELL VOLUME 85.7 fl (80-96); MEAN PLT VOLUME 9.8 fl (7.5-11.1); PLATELET COUNT 182 10^3/uL (134-434); WHITE BLOOD COUNT 7.5 K/mm3 (4.0-10.0)
[2023-10-01 07:37] LABS: POTASSIUM 3.7 mmol/L (3.5-5.1)
[2023-10-01 07:41] LABS: BLOOD UREA NITROGEN 11.9 mg/dL (7-18); CALCIUM 9.2 mg/dL (8.5-10.1)
[2023-10-01 07:45] LABS: CREATININE 1.1 mg/dL (0.55-1.3)
[2023-10-01] MEDS: EZETIMIBE 10 MG TABLET (FP) PO SCH (09:22)
[2023-10-01] MEDS: AMIODARONE HCL 200 MG TABLET PO SCH (09:22)
[2023-10-01] MEDS: LOSARTAN POTASSIUM 50 MG TABLET PO SCH (09:22)
[2023-10-01] MEDS: PANTOPRAZOLE 40 MG TABLET PO SCH (09:22)
[2023-10-01] MEDS ORDERED: PATIENT'S OWN MEDICATION (NON-FORMULARY) (Cyclosporine [Restasis] 1 EACH Droperette) OP SCH (10:00)
[2023-10-01] MEDS: ATORVASTATIN CA 80 MG TABLET (FP) PO SCH (21:35)
[2023-10-01] MEDS: APIXABAN 2.5 MG TABLET PO SCH (21:35)
[2023-10-02] MEDS: LEVOTHYROXINE NA 125 MCG TABLET (FP) PO SCH (07:14)
[2023-10-02 07:49] LABS: BASO % 0.8 % (0-2.0); EOS % 1.3 % (0-4.5); HEMATOCRIT 33.5 % (32.4-45.2); HEMOGLOBIN 11.4 GM/dL (10.7-15.3); LYMPH % 14.2 % (8-40); MCH 29.1 pg (25.7-33.7); MCHC 34.1 g/dl (32.0-36.0); MEAN CELL VOLUME 85.4 fl (80-96); MEAN PLT VOLUME 10.1 fl (7.5-11.1); MONO % 15.4 % (3.8-10.2); NEUT % 68.3 % (42.8-82.8); PLATELET COUNT 172 10^3/uL (134-434); RBC 3.92 M/mm3 (3.60-5.2); WHITE BLOOD COUNT 6.2 K/mm3 (4.0-10.0)
[2023-10-02 07:55] LABS: POTASSIUM 3.8 mmol/L (3.5-5.1)
[2023-10-02 08:00] LABS: ALBUMIN 2.7 g/dl (3.4-5.0); CALCIUM 8.8 mg/dL (8.5-10.1)
[2023-10-02 08:01] LABS: BLOOD UREA NITROGEN 10.2 mg/dL (7-18)
[2023-10-02 08:03] LABS: CREATININE 1.1 mg/dL (0.55-1.3)
[2023-10-02 08:05] LABS: BILIRUBIN,TOTAL 0.8 mg/dL (0.2-1)
[2023-10-02] MEDS: LOSARTAN POTASSIUM 50 MG TABLET PO SCH (09:18)
[2023-10-02] MEDS: APIXABAN 2.5 MG TABLET PO SCH ×2 (09:18→21:15)
[2023-10-02] MEDS: PANTOPRAZOLE 40 MG TABLET PO SCH (09:18)
[2023-10-02] MEDS: AMIODARONE HCL 200 MG TABLET PO SCH (09:18)
[2023-10-02] MEDS: TORSEMIDE 10 MG TABLET PO SCH (09:19)
[2023-10-02] MEDS: EZETIMIBE 10 MG TABLET (FP) PO SCH (09:19)
[2023-10-02] MEDS: ATORVASTATIN CA 80 MG TABLET (FP) PO SCH (21:15)
[2023-10-03] MEDS: LEVOTHYROXINE NA 125 MCG TABLET (FP) PO SCH (06:12)
[2023-10-03 07:05] LABS: HEMATOCRIT 33.2 % (32.4-45.2); HEMOGLOBIN 11.1 GM/dL (10.7-15.3); MCH 28.4 pg (25.7-33.7); MCHC 33.5 g/dl (32.0-36.0); MEAN CELL VOLUME 84.8 fl (80-96); MEAN PLT VOLUME 10.3 fl (7.5-11.1); PLATELET COUNT 167 10^3/uL (134-434); RBC 3.92 M/mm3 (3.60-5.2); RDW 16.1 % (11.6-15.6); WHITE BLOOD COUNT 6.7 K/mm3 (4.0-10.0)
[2023-10-03] MEDS: AMIODARONE HCL 200 MG TABLET PO SCH (10:19)
[2023-10-03] MEDS: APIXABAN 2.5 MG TABLET PO SCH (10:20)
[2023-10-03] MEDS: EZETIMIBE 10 MG TABLET (FP) PO SCH (10:20)
[2023-10-03] MEDS: PANTOPRAZOLE 40 MG TABLET PO SCH (10:20)
[2023-10-03] MEDS: LOSARTAN POTASSIUM 50 MG TABLET PO SCH (10:20)
[2023-10-03 11:40] VITALS: BP 144/49; PULSE 68; RESP 22; TEMP 97.8
== END 2023-10-03 14:01 | disposition home or self-care (01) | DRG 378 ==
LOC: JER 12:20 → JERBED 15:53 → OBSVTOIN 19:47 → J4W 09-28 18:54
PROVIDERS: ADMIT Internal Medicine; ATTEND Internal Medicine
PROC: 30233N1 Transfusion of Nonautologous Red Blood Cells into Peripheral Vein, Percutaneous Approach (ICD-10-PCS; 2023-09-27)
PROC: 3E0H8GC Introduction of Other Therapeutic Substance into Lower GI, Via Natural or Artificial Opening Endoscopic (ICD-10-PCS; 2023-09-30)
PROC: 0DB68ZX Excision of Stomach, Via Natural or Artificial Opening Endoscopic, Diagnostic (ICD-10-PCS; 2023-09-30)
PROC: 0W3P8ZZ Control Bleeding in Gastrointestinal Tract, Via Natural or Artificial Opening Endoscopic (ICD-10-PCS; principal; 2023-09-30 11:45)
DX: K55.21 Angiodysplasia of colon with hemorrhage (principal); D62 Acute posthemorrhagic anemia; N17.9 Acute kidney failure, unspecified; I25.10 Atherosclerotic heart disease of native coronary artery without angina pectoris; E03.9 Hypothyroidism, unspecified; I10 Essential (primary) hypertension; E78.5 Hyperlipidemia, unspecified; I48.91 Unspecified atrial fibrillation; K57.90 Diverticulosis of intestine, part unspecified, without perforation or abscess without bleeding; D72.829 Elevated white blood cell count, unspecified; R00.1 Bradycardia, unspecified; K44.9 Diaphragmatic hernia without obstruction or gangrene; I12.9 Hypertensive chronic kidney disease with stage 1 through stage 4 chronic kidney disease, or unspecified chronic kidney disease; N18.9 Chronic kidney disease, unspecified; K25.9 Gastric ulcer, unspecified as acute or chronic, without hemorrhage or perforation; M10.9 Gout, unspecified; K64.8 Other hemorrhoids; E66.9 Obesity, unspecified; Z68.39 Body mass index [BMI] 39.0-39.9, adult; Z85.828 Personal history of other malignant neoplasm of skin; Z95.5 Presence of coronary angioplasty implant and graft
CPT/HCPCS: 0241U-QW; 36415; 36430; 71045-TC-FY; 80048; 80053; 81003; 82272; 83605; 83880; 84484; 85025; 85027; 85610; 85651; 85730; 86140; 86850; 86900; 86901; 86922; 87086; 88305-TC; 90677; 93005; 93010; 97116-GP; 97161-GP; 99285-25; G0378; P9058

== ENCOUNTER 2023-12-29 14:17 | Inpatient (IN) | payer OTHER, BC ==
[2023-12-29 15:30] LABS: BASO % 0.9 % (0-2.0); EOS % 0.9 % (0-4.5); HEMOGLOBIN 7.8 GM/dL (10.7-15.3); LYMPH % 27.2 % (8-40); MCH 26.9 pg (25.7-33.7); MCHC 32.5 g/dl (32.0-36.0); MEAN CELL VOLUME 82.9 fl (80-96); MEAN PLT VOLUME 9.1 fl (7.5-11.1); MONO % 9.5 % (3.8-10.2); NEUT % 61.5 % (42.8-82.8); PLATELET COUNT 240 10^3/uL (134-434); RDW 16.6 % (11.6-15.6); WHITE BLOOD COUNT 7.5 K/mm3 (4.0-10.0)
[2023-12-29 15:37] LABS: INR 1.19 (0.83-1.09); PROTHROMBIN TIME (PATIENT) 13.8 SEC (9.7-13.0)
[2023-12-29 15:53] LABS: POTASSIUM 4.3 mmol/L (3.5-5.1)
[2023-12-29 15:55] LABS: CALCIUM 9.3 mg/dL (8.5-10.1)
[2023-12-29 15:56] LABS: BLOOD UREA NITROGEN 26.1 mg/dL (7-18); MAGNESIUM 2.1 mg/dL (1.8-2.4)
[2023-12-29 15:59] LABS: PHOSPHOROUS 2.6 mg/dL (2.5-4.9)
[2023-12-29 16:00] LABS: BILIRUBIN,TOTAL 0.6 mg/dL (0.2-1); TOT PROT 6.7 g/dl (6.4-8.2)
[2023-12-29] MEDS ORDERED: ACETAMINOPHEN INJECTION 100 ML IVPB ONE (19:19)
[2023-12-29] MEDS: SODIUM CHLORIDE 0.9% 500 ML INFUS.BAG IV ONE (19:26)
[2023-12-29] MEDS: ACETAMINOPHEN 1000 MG/100 ML BAG IVPB ONE (19:26)
[2023-12-29 22:24] LABS: PH,URINE 5.5 (5.0-8.0); URINE APPEARANCE CLEAR; URINE BILIRUBIN NEGATIVE (NEGATIVE); URINE COLOR YELLOW; URINE GLUCOSE (UA) NEGATIVE (NEGATIVE); URINE KETONE 1+ (NEGATIVE); URINE LEUK ESTERASE NEGATIVE (NEGATIVE); URINE NITRITE NEGATIVE (NEGATIVE); URINE PROTEIN NEGATIVE (NEGATIVE); URINE UROBILINOGEN 0.2 mg/dL (0.2-1.0)
[2023-12-29] MEDS: PANTOPRAZOLE 40 MG TABLET PO SCH (23:26)
[2023-12-30 00:51] LABS: HEMATOCRIT 25.6 % (32.4-45.2); HEMOGLOBIN 8.5 GM/dL (10.7-15.3); MCH 28.1 pg (25.7-33.7); MCHC 33.2 g/dl (32.0-36.0); MEAN CELL VOLUME 84.5 fl (80-96); MEAN PLT VOLUME 9.4 fl (7.5-11.1); PLATELET COUNT 201 10^3/uL (134-434); RBC 3.03 M/mm3 (3.60-5.2); RDW 16.2 % (11.6-15.6); WHITE BLOOD COUNT 7.9 K/mm3 (4.0-10.0)
[2023-12-30] MEDS ORDERED: LEVOTHYROXINE NA 100 MCG TABLET (FP) ONE (07:03)
[2023-12-30] MEDS ORDERED: LEVOTHYROXINE NA 25 MCG TABLET (FP) ONE (07:03)
[2023-12-30] MEDS: LEVOTHYROXINE NA 125 MCG TABLET (FP) PO SCH (07:05)
[2023-12-30 07:11] LABS: POTASSIUM 3.7 mmol/L (3.5-5.1)
[2023-12-30 07:13] LABS: CALCIUM 8.8 mg/dL (8.5-10.1)
[2023-12-30 07:14] LABS: ALBUMIN 2.6 g/dl (3.4-5.0); BLOOD UREA NITROGEN 24.4 mg/dL (7-18)
[2023-12-30 07:17] LABS: CREATININE 0.8 mg/dL (0.55-1.3)
[2023-12-30 07:18] LABS: BILIRUBIN,TOTAL 1.2 mg/dL (0.2-1); TOT PROT 5.7 g/dl (6.4-8.2)
[2023-12-30 07:22] LABS: HEMOGLOBIN 8.1 GM/dL (10.7-15.3); MCH 28.6 pg (25.7-33.7); MCHC 33.7 g/dl (32.0-36.0); MEAN CELL VOLUME 84.9 fl (80-96); MEAN PLT VOLUME 9.9 fl (7.5-11.1); PLATELET COUNT 181 10^3/uL (134-434); RBC 2.83 M/mm3 (3.60-5.2); RDW 16.1 % (11.6-15.6); WHITE BLOOD COUNT 7.5 K/mm3 (4.0-10.0)
[2023-12-30] MEDS ORDERED: PANTOPRAZOLE 40 MG TABLET PO ONE (09:24)
[2023-12-30] MEDS: PANTOPRAZOLE 40 MG TABLET PO SCH (09:30)
[2023-12-30] MEDS: EZETIMIBE 10 MG TABLET (FP) PO SCH (09:30)
[2023-12-30] MEDS ORDERED: LOSARTAN POTASSIUM 50 MG TABLET PO SCH (10:00)
[2023-12-30 11:25] LABS: EOS % 1.8 % (0-4.5); HEMATOCRIT 24.7 % (32.4-45.2); HEMOGLOBIN 8.1 GM/dL (10.7-15.3); LYMPH % 26.1 % (8-40); MCH 27.9 pg (25.7-33.7); MCHC 32.9 g/dl (32.0-36.0); MEAN CELL VOLUME 84.9 fl (80-96); MEAN PLT VOLUME 9.4 fl (7.5-11.1); MONO % 10.3 % (3.8-10.2); NEUT % 60.8 % (42.8-82.8); PLATELET COUNT 190 10^3/uL (134-434); RBC 2.91 M/mm3 (3.60-5.2); RDW 15.9 % (11.6-15.6); WHITE BLOOD COUNT 7.4 K/mm3 (4.0-10.0)
[2023-12-30] MEDS: DOCUSATE SODIUM 100 MG CAPSULE (FP) PO SCH (15:05)
[2023-12-30] MEDS: ATORVASTATIN CA 80 MG TABLET (FP) PO SCH (21:28)
[2023-12-31 09:21] LABS: HEMATOCRIT 26.3 % (32.4-45.2); HEMOGLOBIN 8.7 GM/dL (10.7-15.3); MCH 28.2 pg (25.7-33.7); MCHC 32.9 g/dl (32.0-36.0); MEAN CELL VOLUME 85.5 fl (80-96); MEAN PLT VOLUME 10.3 fl (7.5-11.1); PLATELET COUNT 201 10^3/uL (134-434); RBC 3.08 M/mm3 (3.60-5.2); RDW 16.1 % (11.6-15.6); WHITE BLOOD COUNT 7.4 K/mm3 (4.0-10.0)
[2023-12-31 09:42] LABS: POTASSIUM 4.1 mmol/L (3.5-5.1)
[2023-12-31 09:46] LABS: ALBUMIN 2.8 g/dl (3.4-5.0); BLOOD UREA NITROGEN 18.5 mg/dL (7-18)
[2023-12-31 09:47] LABS: MAGNESIUM 2.1 mg/dL (1.8-2.4)
[2023-12-31 09:49] LABS: CREATININE 0.9 mg/dL (0.55-1.3)
[2023-12-31 09:51] LABS: BILIRUBIN,TOTAL 0.8 mg/dL (0.2-1)
[2023-12-31] MEDS: LOSARTAN POTASSIUM 50 MG TABLET PO SCH (09:55)
[2023-12-31 10:12] LABS: ANISOCYTOSIS 1+; MACROCYTOSIS 0
[2023-12-31 14:37] VITALS: BMI 33.8
[2024-01-01 09:37] LABS: BASO % 0.8 % (0-2.0); EOS % 4.4 % (0-4.5); HEMATOCRIT 23.3 % (32.4-45.2); HEMOGLOBIN 7.4 GM/dL (10.7-15.3); LYMPH % 28.7 % (8-40); MCH 27.2 pg (25.7-33.7); MCHC 31.9 g/dl (32.0-36.0); MEAN CELL VOLUME 85.4 fl (80-96); MEAN PLT VOLUME 10.1 fl (7.5-11.1); MONO % 11.6 % (3.8-10.2); NEUT % 54.5 % (42.8-82.8); PLATELET COUNT 190 10^3/uL (134-434); RBC 2.73 M/mm3 (3.60-5.2); RDW 16.3 % (11.6-15.6); WHITE BLOOD COUNT 6.5 K/mm3 (4.0-10.0)
[2024-01-01 10:24] LABS: POTASSIUM 3.9 mmol/L (3.5-5.1)
[2024-01-01 10:29] LABS: CALCIUM 8.6 mg/dL (8.5-10.1)
[2024-01-01 10:30] LABS: ALBUMIN 2.5 g/dl (3.4-5.0); BLOOD UREA NITROGEN 19.2 mg/dL (7-18); MAGNESIUM 2.1 mg/dL (1.8-2.4)
[2024-01-01 10:33] LABS: CREATININE 0.8 mg/dL (0.55-1.3)
[2024-01-01 10:34] LABS: BILIRUBIN,TOTAL 0.6 mg/dL (0.2-1); TOT PROT 5.5 g/dl (6.4-8.2)
[2024-01-01] MEDS: PEG 3350/NA SULF BICARB CL/KCL 4000 ML SOLN.RECON PO ONE (17:58)
[2024-01-01] MEDS: MEROPENEM 1 GM in DEXTROSE 5%-WATER 100 ML IVPB SCH (18:59)
[2024-01-01] MEDS: BISACODYL 5 MG TABLET.DR (FP) PO ONE (22:03)
[2024-01-02 04:16] LABS: HEMATOCRIT 20.6 % (32.4-45.2); MCH 28.6 pg (25.7-33.7); MCHC 34.1 g/dl (32.0-36.0); MEAN CELL VOLUME 83.9 fl (80-96); MEAN PLT VOLUME 9.7 fl (7.5-11.1); PLATELET COUNT 191 10^3/uL (134-434); RBC 2.46 M/mm3 (3.60-5.2); RDW 16.9 % (11.6-15.6); WHITE BLOOD COUNT 8.7 K/mm3 (4.0-10.0)
[2024-01-02 05:05] LABS: POTASSIUM 4.1 mmol/L (3.5-5.1)
[2024-01-02 05:06] LABS: CALCIUM 8.5 mg/dL (8.5-10.1)
[2024-01-02 05:07] LABS: BLOOD UREA NITROGEN 20.6 mg/dL (7-18); MAGNESIUM 1.9 mg/dL (1.8-2.4)
[2024-01-02 05:10] LABS: CREATININE 1.1 mg/dL (0.55-1.3)
[2024-01-02 11:02] LABS: BASO % 0.5 % (0-2.0); HEMATOCRIT 23.1 % (32.4-45.2); HEMOGLOBIN 7.7 GM/dL (10.7-15.3); LYMPH % 21.7 % (8-40); MCHC 33.4 g/dl (32.0-36.0); MEAN CELL VOLUME 83.9 fl (80-96); MEAN PLT VOLUME 9.7 fl (7.5-11.1); MONO % 11.6 % (3.8-10.2); NEUT % 65.2 % (42.8-82.8); PLATELET COUNT 167 10^3/uL (134-434); RBC 2.75 M/mm3 (3.60-5.2); RDW 15.6 % (11.6-15.6); WHITE BLOOD COUNT 8.3 K/mm3 (4.0-10.0)
[2024-01-02 11:08] LABS: INR 1.17 (0.83-1.09); PROTHROMBIN TIME (PATIENT) 13.5 SEC (9.7-13.0)
[2024-01-02 11:34] LABS: POTASSIUM 3.7 mmol/L (3.5-5.1)
[2024-01-02 11:36] LABS: CALCIUM 8.1 mg/dL (8.5-10.1)
[2024-01-02 11:37] LABS: ALBUMIN 2.4 g/dl (3.4-5.0); BLOOD UREA NITROGEN 18.3 mg/dL (7-18); MAGNESIUM 1.9 mg/dL (1.8-2.4)
[2024-01-02 11:40] LABS: CREATININE 0.8 mg/dL (0.55-1.3)
[2024-01-02 11:41] LABS: BILIRUBIN,TOTAL 0.8 mg/dL (0.2-1); TOT PROT 5.1 g/dl (6.4-8.2)
[2024-01-02] MEDS ORDERED: ETOMIDATE 20 MG/10 ML VIAL IVPUSH ONE (12:28)
[2024-01-02] MEDS ORDERED: LIDOCAINE HCL 2% JELLY 11 ML TP ONE (12:45)
[2024-01-02] MEDS: MEROPENEM 1 GM in DEXTROSE 5%-WATER 100 ML IVPB SCH ×2 (15:26→18:59)
[2024-01-03 09:25] LABS: POTASSIUM 3.7 mmol/L (3.5-5.1)
[2024-01-03 09:27] LABS: BLOOD UREA NITROGEN 12.8 mg/dL (7-18); CALCIUM 8.2 mg/dL (8.5-10.1)
[2024-01-03 09:28] LABS: ALBUMIN 2.2 g/dl (3.4-5.0); MAGNESIUM 1.9 mg/dL (1.8-2.4)
[2024-01-03 09:31] LABS: CREATININE 0.8 mg/dL (0.55-1.3)
[2024-01-03 09:32] LABS: BILIRUBIN,TOTAL 0.7 mg/dL (0.2-1); TOT PROT 4.8 g/dl (6.4-8.2)
[2024-01-03] MEDS: SODIUM CHLORIDE 1,000 ML IV SCH (10:01)
[2024-01-03 10:54] LABS: HEMATOCRIT 23.6 % (32.4-45.2); HEMOGLOBIN 7.8 GM/dL (10.7-15.3); MCH 28.1 pg (25.7-33.7); MCHC 33.3 g/dl (32.0-36.0); MEAN CELL VOLUME 84.6 fl (80-96); MEAN PLT VOLUME 10.1 fl (7.5-11.1); PLATELET COUNT 176 10^3/uL (134-434); RBC 2.79 M/mm3 (3.60-5.2); RDW 15.9 % (11.6-15.6); WHITE BLOOD COUNT 7.4 K/mm3 (4.0-10.0)
[2024-01-03 11:20] LABS: ANISOCYTOSIS 3+; MACROCYTOSIS 0
[2024-01-03] MEDS: NITROFURANTOIN MONOHYD/M-CRYST 100 MG CAPSULE PO SCH (21:58)
[2024-01-04] MEDS: ACETAMINOPHEN 1000 MG/100 ML BAG IVPB ONE (00:05)
[2024-01-04 10:51] LABS: HEMATOCRIT 26.8 % (32.4-45.2); HEMOGLOBIN 8.9 GM/dL (10.7-15.3); MCH 28.3 pg (25.7-33.7); MCHC 33.2 g/dl (32.0-36.0); MEAN CELL VOLUME 85.4 fl (80-96); MEAN PLT VOLUME 10.3 fl (7.5-11.1); PLATELET COUNT 160 10^3/uL (134-434); RBC 3.14 M/mm3 (3.60-5.2); RDW 15.5 % (11.6-15.6); WHITE BLOOD COUNT 6.8 K/mm3 (4.0-10.0)
[2024-01-04 11:13] LABS: POTASSIUM 3.4 mmol/L (3.5-5.1)
[2024-01-04 11:22] LABS: BLOOD UREA NITROGEN 12.7 mg/dL (7-18); CALCIUM 8.9 mg/dL (8.5-10.1); MAGNESIUM 2.1 mg/dL (1.8-2.4)
[2024-01-04 11:23] LABS: ALBUMIN 2.4 g/dl (3.4-5.0)
[2024-01-04 11:25] LABS: CREATININE 0.8 mg/dL (0.55-1.3)
[2024-01-04 11:27] LABS: TOT PROT 5.2 g/dl (6.4-8.2)
[2024-01-04 11:36] LABS: ANISOCYTOSIS 0; MACROCYTOSIS 0
[2024-01-04 15:24] VITALS: RESP 18
[2024-01-05 08:59] LABS: HEMATOCRIT 24.5 % (32.4-45.2); HEMOGLOBIN 8.3 GM/dL (10.7-15.3); MCH 28.7 pg (25.7-33.7); MCHC 33.7 g/dl (32.0-36.0); PLATELET COUNT 171 10^3/uL (134-434); RBC 2.88 M/mm3 (3.60-5.2); RDW 15.7 % (11.6-15.6); WHITE BLOOD COUNT 7.6 K/mm3 (4.0-10.0)
[2024-01-05 09:20] LABS: POTASSIUM 3.7 mmol/L (3.5-5.1)
[2024-01-05 09:26] LABS: BLOOD UREA NITROGEN 11.8 mg/dL (7-18); CALCIUM 8.6 mg/dL (8.5-10.1)
[2024-01-05 09:27] LABS: ALBUMIN 2.4 g/dl (3.4-5.0)
[2024-01-05 09:29] LABS: CREATININE 0.8 mg/dL (0.55-1.3)
[2024-01-05 09:30] LABS: BILIRUBIN,TOTAL 0.9 mg/dL (0.2-1); TOT PROT 5.2 g/dl (6.4-8.2)
[2024-01-05 09:47] LABS: ANISOCYTOSIS 1+; MACROCYTOSIS 0
[2024-01-06 09:32] LABS: HEMOGLOBIN 7.4 GM/dL (10.7-15.3); MCH 28.8 pg (25.7-33.7); MCHC 33.8 g/dl (32.0-36.0); MEAN CELL VOLUME 85.2 fl (80-96); MEAN PLT VOLUME 10.2 fl (7.5-11.1); PLATELET COUNT 160 10^3/uL (134-434); RBC 2.58 M/mm3 (3.60-5.2); RDW 15.7 % (11.6-15.6); WHITE BLOOD COUNT 6.3 K/mm3 (4.0-10.0)
[2024-01-06 10:09] LABS: ALBUMIN 2.2 g/dl (3.4-5.0); BLOOD UREA NITROGEN 13.6 mg/dL (7-18)
[2024-01-06 10:14] LABS: BILIRUBIN,TOTAL 0.7 mg/dL (0.2-1); TOT PROT 4.7 g/dl (6.4-8.2)
[2024-01-06 10:15] LABS: CREATININE 0.7 mg/dL (0.55-1.3)
[2024-01-06 11:10] LABS: ANISOCYTOSIS 0; HELMET CELLS 0; HOWELL-JOLLY BODIES 0; MACROCYTOSIS 0; OVALOCYTE 0; ROULEAU 0; SICKELED CELLS 0; TARGET CELLS 0; TEAR DROP CELLS 0; TOXIC GRANULATION 0
[2024-01-06 15:43] VITALS: BP 150/45; PULSE 66; TEMP 98.2
== END 2024-01-06 16:26 | disposition home or self-care (01) | DRG 378 ==
LOC: JER 14:17 → JERBED 18:08 → OBSVTOIN 20:00 → J8W 12-30 13:15
PROVIDERS: ADMIT Internal Medicine; ATTEND Nurse Practitioner Acute Care
PROC: 30233N1 Transfusion of Nonautologous Red Blood Cells into Peripheral Vein, Percutaneous Approach (ICD-10-PCS; principal; 2023-12-29)
PROC: 0DJD8ZZ Inspection of Lower Intestinal Tract, Via Natural or Artificial Opening Endoscopic (ICD-10-PCS; 2024-01-02)
DX: K92.2 Gastrointestinal hemorrhage, unspecified (principal); E44.0 Moderate protein-calorie malnutrition; Z16.12 Extended spectrum beta lactamase (ESBL) resistance; D64.9 Anemia, unspecified; I10 Essential (primary) hypertension; E03.9 Hypothyroidism, unspecified; I48.91 Unspecified atrial fibrillation; I25.10 Atherosclerotic heart disease of native coronary artery without angina pectoris; K57.90 Diverticulosis of intestine, part unspecified, without perforation or abscess without bleeding; K64.8 Other hemorrhoids; E78.5 Hyperlipidemia, unspecified
CPT/HCPCS: 0241U-QW; 36415; 36430; 36511; 74174-TC; 74177-TC; 80048; 80053; 81003; 82272; 83735; 84100; 84439; 84443; 84484; 85025; 85027; 85610; 85730; 86850; 86900; 86901; 86922; 87086; 87186; 93005; 93010; 97116-GP; 97161-GP; 99285-25; G0378; J0131; P9038; P9058; Q9967

== ENCOUNTER 2024-01-14 13:14 | Inpatient (IN) | payer OTHER, BC ==
[2024-01-14] MEDS ORDERED: ACETAMINOPHEN 325 MG TABLET (FP) ONE (14:46)
[2024-01-14] MEDS: ACETAMINOPHEN 325 MG TABLET (FP) PO ONE (15:02)
[2024-01-14 23:31] LABS: BASO % 0.8 % (0-2.0); EOS % 0.9 % (0-4.5); HEMATOCRIT 27.6 % (32.4-45.2); HEMOGLOBIN 8.8 GM/dL (10.7-15.3); LYMPH % 17.7 % (8-40); MCH 27.9 pg (25.7-33.7); MCHC 31.9 g/dl (32.0-36.0); MEAN CELL VOLUME 87.2 fl (80-96); MEAN PLT VOLUME 9.9 fl (7.5-11.1); MONO % 10.7 % (3.8-10.2); NEUT % 69.9 % (42.8-82.8); PLATELET COUNT 257 10^3/uL (134-434); RBC 3.16 M/mm3 (3.60-5.2); RDW 16.3 % (11.6-15.6); WHITE BLOOD COUNT 12.8 K/mm3 (4.0-10.0)
[2024-01-14 23:56] LABS: POTASSIUM 3.6 mmol/L (3.5-5.1)
[2024-01-14 23:58] LABS: ALBUMIN 2.5 g/dl (3.4-5.0); BLOOD UREA NITROGEN 21.5 mg/dL (7-18); CALCIUM 8.9 mg/dL (8.5-10.1)
[2024-01-15 00:02] LABS: CREATININE 0.8 mg/dL (0.55-1.3)
[2024-01-15 00:03] LABS: BILIRUBIN,TOTAL 0.8 mg/dL (0.2-1)
[2024-01-15] MEDS ORDERED: ACETAMINOPHEN 1000 MG/100 ML BAG IVPB PRN (01:26)
[2024-01-15 01:36] VITALS: BMI 33.0
[2024-01-15] MEDS: LEVOTHYROXINE NA 125 MCG TABLET (FP) PO SCH (06:07)
[2024-01-15 08:32] LABS: EPI CELLS >36 /uL (0-25.1); HYALINE CASTS 2 /uL (0-3.1); PH,URINE 5.5 (5.0-8.0); URINE APPEARANCE CLEAR; URINE BACTERIA 2370 /uL (0-1359); URINE BILIRUBIN NEGATIVE (NEGATIVE); URINE COLOR DK YELLOW; URINE GLUCOSE (UA) NEGATIVE (NEGATIVE); URINE KETONE 1+ (NEGATIVE); URINE LEUK ESTERASE 1+ (NEGATIVE); URINE NITRITE NEGATIVE (NEGATIVE); URINE PROTEIN TRACE (NEGATIVE); URINE WBC 39 /uL (0-25.8)
[2024-01-15 08:57] LABS: HEMATOCRIT 23.8 % (32.4-45.2); HEMOGLOBIN 7.8 GM/dL (10.7-15.3); MCH 28.3 pg (25.7-33.7); MCHC 32.7 g/dl (32.0-36.0); MEAN CELL VOLUME 86.4 fl (80-96); MEAN PLT VOLUME 10.1 fl (7.5-11.1); PLATELET COUNT 230 10^3/uL (134-434); RBC 2.75 M/mm3 (3.60-5.2); RDW 16.3 % (11.6-15.6); WHITE BLOOD COUNT 10.7 K/mm3 (4.0-10.0)
[2024-01-15 08:59] LABS: POTASSIUM 3.2 mmol/L (3.5-5.1)
[2024-01-15 09:04] LABS: ALBUMIN 2.1 g/dl (3.4-5.0); BLOOD UREA NITROGEN 20.4 mg/dL (7-18); CALCIUM 8.4 mg/dL (8.5-10.1)
[2024-01-15 09:07] LABS: BILIRUBIN,TOTAL 0.6 mg/dL (0.2-1); CREATININE 0.8 mg/dL (0.55-1.3); PHOSPHOROUS 3.3 mg/dL (2.5-4.9)
[2024-01-15 09:08] LABS: TOT PROT 5.2 g/dl (6.4-8.2)
[2024-01-15 09:36] LABS: ANISOCYTOSIS 1+; MACROCYTOSIS 0
[2024-01-15] MEDS: FAMOTIDINE 20 MG TABLET PO SCH (11:08)
[2024-01-15] MEDS: POTASSIUM CHLORIDE TABS 20 MEQ TABLET.ER (FP) PO SCH (11:08)
[2024-01-15] MEDS: EZETIMIBE 10 MG TABLET (FP) PO SCH (11:08)
[2024-01-15] MEDS: LIDOCAINE 4% PATCH TP SCH (11:09)
[2024-01-15] MEDS: NITROFURANTOIN MONOHYD/M-CRYST 100 MG CAPSULE PO SCH (11:09)
[2024-01-15] MEDS: traMADol HCL 50 MG TABLET PO PRN (11:12)
[2024-01-15 13:29] VITALS: BP 154/50; PULSE 65; RESP 16; TEMP 97.4
[2024-01-15 15:10] LABS: URINE RBC 19 /uL (0-23.9)
[2024-01-15] MEDS ORDERED: LIDOCAINE PATCH REMOVAL MC SCH (22:00)
[2024-01-15] MEDS ORDERED: ATORVASTATIN CA 40 MG TABLET (FP) PO SCH (22:00)
== END 2024-01-15 16:36 | disposition left against medical advice (07) | DRG 563 ==
LOC: JER 13:14 → JERBED 21:02 → J8W 01-15 → OBSVTOIN 01-15 09:38
PROVIDERS: ADMIT Internal Medicine; ATTEND Nurse Practitioner Acute Care
DX: S39.012A Strain of muscle, fascia and tendon of lower back, initial encounter (principal); M47.816 Spondylosis without myelopathy or radiculopathy, lumbar region; M43.16 Spondylolisthesis, lumbar region; I48.91 Unspecified atrial fibrillation; E03.9 Hypothyroidism, unspecified; E78.00 Pure hypercholesterolemia, unspecified; M10.9 Gout, unspecified; M54.30 Sciatica, unspecified side; I10 Essential (primary) hypertension; K57.90 Diverticulosis of intestine, part unspecified, without perforation or abscess without bleeding; Z85.828 Personal history of other malignant neoplasm of skin; R26.2 Difficulty in walking, not elsewhere classified; W17.89XA Other fall from one level to another, initial encounter; Y93.9 Activity, unspecified; Y92.89 Other specified places as the place of occurrence of the external cause; Y99.8 Other external cause status; Z95.5 Presence of coronary angioplasty implant and graft
CPT/HCPCS: 36415; 72170-TC-FY; 72192-TC; 73502-TC-RT-FY; 80053; 81003; 83735; 84100; 85025; 87086; 87186; 93005; 93010; 99285-25; G0378

== ENCOUNTER 2024-05-04 12:57 | Emergency (ER) | payer OTHER, BC ==
[2024-05-04 13:34] VITALS: BMI 32.1
[2024-05-04] MEDS: ACETAMINOPHEN 1000 MG/100 ML BAG IVPB ONE (17:26)
[2024-05-04 17:29] VITALS: RESP 18
[2024-05-04 17:29] LABS: BASO % 0.4 % (0-2.0); EOS % 0.1 % (0-4.5); HEMATOCRIT 37.6 % (32.4-45.2); HEMOGLOBIN 12.5 GM/dL (10.7-15.3); LYMPH % 11.6 % (8-40); MCH 28.8 pg (25.7-33.7); MCHC 33.3 g/dl (32.0-36.0); MEAN CELL VOLUME 86.5 fl (80-96); MEAN PLT VOLUME 8.8 fl (7.5-11.1); NEUT % 81.9 % (42.8-82.8); PLATELET COUNT 218 10^3/uL (134-434); RBC 4.35 M/mm3 (3.60-5.2); RDW 16.3 % (11.6-15.6); WHITE BLOOD COUNT 8.7 K/mm3 (4.0-10.0)
[2024-05-04] MEDS ORDERED: LIDOCAINE 5% TOPICAL PATCH ONE ×2 (17:35→20:20)
[2024-05-04] MEDS ORDERED: ACETAMINOPHEN 325 MG TABLET (FP) ONE ×2 (17:35→22:44)
[2024-05-04 17:38] LABS: INR 1.03 (0.83-1.09); PROTHROMBIN TIME (PATIENT) 11.6 SEC (9.7-13.0)
[2024-05-04 17:41] LABS: ACTIVATED PTT 29.7 SECONDS (25.2-36.5)
[2024-05-04 17:52] LABS: POTASSIUM 3.4 mmol/L (3.5-5.1)
[2024-05-04] MEDS: LIDOCAINE 5% TOPICAL PATCH TP ONE ×2 (17:52→20:16)
[2024-05-04 17:55] LABS: ALBUMIN 3.4 g/dl (3.4-5.0); CALCIUM 9.2 mg/dL (8.5-10.1)
[2024-05-04 17:58] LABS: CREATININE 0.7 mg/dL (0.55-1.3)
[2024-05-04 18:00] LABS: BILIRUBIN,TOTAL 0.6 mg/dL (0.2-1); TOT PROT 7.4 g/dl (6.4-8.2)
[2024-05-04] MEDS: ACETAMINOPHEN 500 MG TABLET (FP) PO ONE ×2 (18:00→23:07)
[2024-05-04] MEDS: LIDOCAINE PATCH REMOVAL MC SCH (21:12)
[2024-05-04 23:56] VITALS: BP 149/69; PULSE 81; TEMP 98.4
[2024-05-05] MEDS ORDERED: LIDOCAINE PATCH REMOVAL MC SCH (08:00)
== END 2024-05-05 02:05 | disposition home or self-care (01) ==
LOC: JER 12:57
DX: M25.551 Pain in right hip (principal); W01.0XXA Fall on same level from slipping, tripping and stumbling without subsequent striking against object, initial encounter
CPT/HCPCS: 36415; 70450-TC; 71045-TC-FY; 72170-TC-FY; 72192-TC; 73502-TC-RT-FY; 73700-TC-RT; 80053; 85025; 85610; 85730; 86850; 86870; 86880; 86900; 86901; 86902; 93005; 93010; 99285-25

== ENCOUNTER 2024-06-01 17:05 | Inpatient (IN) | payer OTHER, BC ==
[2024-06-01] MEDS ORDERED: levETIRAcetam 500 MG/5 ML INJECTION VIAL IVPB ONE ×2 (17:20→20:53)
[2024-06-01] MEDS ORDERED: RAPID SEQUENCE INTUBATION KIT NR ONE (17:34)
[2024-06-01] MEDS: levETIRAcetam 500 MG/5 ML INJECTION VIAL IVPB ONE ×2 (18:21→21:00)
[2024-06-01] MEDS: LORazepam 2 MG/ML SDV VIAL IM ONE (18:26)
[2024-06-01 18:30] LABS: BASO % 0.7 % (0-2.0); EOS % 2.1 % (0-4.5); HEMATOCRIT 36.9 % (32.4-45.2); HEMOGLOBIN 11.7 GM/dL (10.7-15.3); LYMPH % 49.3 % (8-40); MCH 29.3 pg (25.7-33.7); MCHC 31.6 g/dl (32.0-36.0); MEAN CELL VOLUME 92.8 fl (80-96); MONO % 9.3 % (3.8-10.2); NEUT % 38.6 % (42.8-82.8); PLATELET COUNT 252 10^3/uL (134-434); RBC 3.98 M/mm3 (3.60-5.2); RDW 18.1 % (11.6-15.6); WHITE BLOOD COUNT 8.7 K/mm3 (4.0-10.0)
[2024-06-01 18:38] LABS: POTASSIUM 3.8 mmol/L (3.5-5.1)
[2024-06-01 18:40] LABS: ALBUMIN 3.6 g/dl (3.4-5.0); BLOOD UREA NITROGEN 17.2 mg/dL (7-18); CALCIUM 9.3 mg/dL (8.5-10.1)
[2024-06-01] MEDS: SODIUM CHLORIDE 0.9% 500 ML INFUS.BAG IV ONE (18:43)
[2024-06-01 18:44] LABS: CREATININE 1.1 mg/dL (0.55-1.3)
[2024-06-01 18:45] LABS: BILIRUBIN,TOTAL 0.5 mg/dL (0.2-1)
[2024-06-01 18:46] LABS: TOT PROT 7.3 g/dl (6.4-8.2)
[2024-06-01] MEDS ORDERED: MIDAZOLAM IN 0.9 % SOD.CHLORID 1 MG/1 ML PLAST..BAG ONE (19:37)
[2024-06-01] MEDS: MIDAZOLAM IN 0.9 % SOD.CHLORID 100 MG/100 ML PLAST..BAG IVPB SCH (19:55)
[2024-06-01] MEDS ORDERED: MIDAZOLAM HCL 2 MG/2 ML SINGLE DOSE VIAL ONE ×2 (20:21→21:59)
[2024-06-01] MEDS: MIDAZOLAM HCL 2 MG/2 ML SINGLE DOSE VIAL IVPUSH ONE ×2 (20:48→22:03)
[2024-06-01] MEDS ORDERED: ACYCLOVIR 1000 MG (50MG/ML) VIAL IVPB SCH (23:45)
[2024-06-01 23:58] LABS: EPI CELLS 7 /uL (0-25.1); HYALINE CASTS 1 /uL (0-3.1); URINE APPEARANCE CLEAR; URINE BACTERIA 3 /uL (0-1359); URINE BILIRUBIN NEGATIVE (NEGATIVE); URINE COLOR YELLOW; URINE GLUCOSE (UA) NEGATIVE (NEGATIVE); URINE KETONE NEGATIVE (NEGATIVE); URINE LEUK ESTERASE NEGATIVE (NEGATIVE); URINE NITRITE NEGATIVE (NEGATIVE); URINE PROTEIN 1+ (NEGATIVE); URINE RBC 9 /uL (0-23.9); URINE UROBILINOGEN 0.2 mg/dL (0.2-1.0); URINE WBC 13 /uL (0-25.8)
[2024-06-01] MEDS: VANCOMYCIN/WATER FOR INJ (PEG) 1,000 MG/200 ML BAG IVPB SCH (23:58)
[2024-06-01] MEDS: CEFTRIAXONE 2 GM in DEXTROSE 5%-WATER 100 ML IVPB SCH (23:58)
[2024-06-01] MEDS: DEXMEDETOMIDINE PREMIX 400 MCG/100 ML BAG IVPB SCH (23:58)
[2024-06-02] MEDS ORDERED: hydrALAZINE HCL 20 MG/ML VIAL IVPUSH PRN (00:01)
[2024-06-02] MEDS ORDERED: AMPICILLIN - 2 GM in SODIUM CHLORIDE 100 ML IVPB SCH (01:00)
[2024-06-02] MEDS: AMPICILLIN - 2 GM in SODIUM CHLORIDE 100 ML IVPB SCH (01:17)
[2024-06-02] MEDS: Acyclovir Sodium 800 MG in DEXTROSE 5%-WATER - 250 ML IVPB SCH (02:17)
[2024-06-02 07:10] LABS: HEMATOCRIT 32.1 % (32.4-45.2); HEMOGLOBIN 10.7 GM/dL (10.7-15.3); MCH 29.8 pg (25.7-33.7); MCHC 33.4 g/dl (32.0-36.0); MEAN PLT VOLUME 8.8 fl (7.5-11.1); PLATELET COUNT 206 10^3/uL (134-434); RDW 17.9 % (11.6-15.6); WHITE BLOOD COUNT 7.6 K/mm3 (4.0-10.0)
[2024-06-02 07:18] LABS: INR 1.09 (0.83-1.09); PROTHROMBIN TIME (PATIENT) 12.5 SEC (9.7-13.0)
[2024-06-02 07:21] LABS: POTASSIUM 3.5 mmol/L (3.5-5.1)
[2024-06-02 07:28] LABS: BLOOD UREA NITROGEN 14.8 mg/dL (7-18); CALCIUM 8.7 mg/dL (8.5-10.1); MAGNESIUM 1.9 mg/dL (1.8-2.4)
[2024-06-02 07:29] LABS: ALBUMIN 3.1 g/dl (3.4-5.0)
[2024-06-02 07:31] LABS: BILIRUBIN,TOTAL 0.6 mg/dL (0.2-1); CREATININE 0.9 mg/dL (0.55-1.3); PHOSPHOROUS 2.6 mg/dL (2.5-4.9); TOT PROT 6.7 g/dl (6.4-8.2)
[2024-06-02] MEDS ORDERED: MIDAZOLAM HCL 2 MG/2 ML SINGLE DOSE VIAL ONE (08:00)
[2024-06-02] MEDS: MIDAZOLAM HCL 2 MG/2 ML SINGLE DOSE VIAL IVPUSH ONE (08:42)
[2024-06-02] MEDS: PANTOPRAZOLE SODIUM 40 MG VIAL IVPUSH SCH (09:21)
[2024-06-02] MEDS: MUPIROCIN 2% TOPICAL OINTMENT FOR DECOLONIZATION NS SCH (09:21)
[2024-06-02] MEDS: levETIRAcetam 500 MG/5 ML INJECTION VIAL IVPB SCH (11:21)
[2024-06-02 14:27] VITALS: BMI 29.5
[2024-06-02] MEDS ORDERED: DEXTROSE 5% IVPB SCH (16:18)
[2024-06-02] MEDS ORDERED: WATER IVPB SCH (16:18)
[2024-06-02] MEDS ORDERED: ACYCLOVIR SODIUM IVPB SCH (16:18)
[2024-06-02] MEDS: VANCOMYCIN 1 GM PREMIX - 1 GM/200 ML BAG IVPB SCH (17:15)
[2024-06-02] MEDS: WATER IVPB SCH (19:23)
[2024-06-02] MEDS: DEXTROSE 5% IVPB SCH (19:23)
[2024-06-02] MEDS: ACYCLOVIR SODIUM IVPB SCH (19:23)
[2024-06-02] MEDS: CHLORHEXIDINE GLUCONATE 4% CLEANSER FOR DECOLONIZATION TP SCH (21:54)
[2024-06-03 06:42] LABS: BASO % 0.7 % (0-2.0); EOS % 0.9 % (0-4.5); HEMATOCRIT 33.5 % (32.4-45.2); HEMOGLOBIN 10.9 GM/dL (10.7-15.3); LYMPH % 16.8 % (8-40); MCH 29.6 pg (25.7-33.7); MCHC 32.7 g/dl (32.0-36.0); MEAN CELL VOLUME 90.7 fl (80-96); MEAN PLT VOLUME 8.9 fl (7.5-11.1); MONO % 8.7 % (3.8-10.2); NEUT % 72.9 % (42.8-82.8); PLATELET COUNT 195 10^3/uL (134-434); RBC 3.69 M/mm3 (3.60-5.2)
[2024-06-03 06:56] LABS: POTASSIUM 3.4 mmol/L (3.5-5.1)
[2024-06-03 07:03] LABS: ALBUMIN 3.1 g/dl (3.4-5.0); BLOOD UREA NITROGEN 13.6 mg/dL (7-18); CALCIUM 8.7 mg/dL (8.5-10.1); MAGNESIUM 1.8 mg/dL (1.8-2.4)
[2024-06-03 07:05] LABS: CREATININE 0.9 mg/dL (0.55-1.3)
[2024-06-03 07:06] LABS: PHOSPHOROUS 3.4 mg/dL (2.5-4.9)
[2024-06-03 07:07] LABS: BILIRUBIN,TOTAL 0.9 mg/dL (0.2-1); TOT PROT 6.6 g/dl (6.4-8.2)
[2024-06-03] MEDS: hydrALAZINE HCL 20 MG/ML VIAL IVPUSH PRN (11:12)
[2024-06-03] MEDS: POTASSIUM CHLORIDE ORAL LIQUID 20 MEQ/15 ML PO ONE (12:06)
[2024-06-03] MEDS: LOSARTAN POTASSIUM 50 MG TABLET PO SCH (14:52)
[2024-06-03] MEDS ORDERED: hydrALAZINE HCL 20 MG/ML VIAL IVPUSH PRN (22:02)
[2024-06-03] MEDS: EZETIMIBE 10 MG TABLET (FP) PO SCH (22:31)
[2024-06-03] MEDS: ATORVASTATIN CA 80 MG TABLET (FP) PO SCH (22:31)
[2024-06-04] MEDS: WATER IVPB SCH (01:51)
[2024-06-04] MEDS: DEXTROSE 5% IVPB SCH (01:51)
[2024-06-04] MEDS: ACYCLOVIR SODIUM IVPB SCH (01:51)
[2024-06-04] MEDS: LEVOTHYROXINE NA 125 MCG TABLET (FP) PO SCH (06:36)
[2024-06-04] MEDS: levETIRAcetam 500 MG/5 ML INJECTION VIAL IVPB SCH (09:44)
[2024-06-04] MEDS: PANTOPRAZOLE SODIUM 40 MG VIAL IVPUSH SCH (09:44)
[2024-06-04] MEDS ORDERED: MUPIROCIN 2% TOPICAL OINTMENT FOR DECOLONIZATION NS SCH (10:00)
[2024-06-04 11:05] LABS: BASO % 0.6 % (0-2.0); EOS % 0.2 % (0-4.5); HEMATOCRIT 34.2 % (32.4-45.2); LYMPH % 11.4 % (8-40); MCHC 32.1 g/dl (32.0-36.0); MEAN CELL VOLUME 90.3 fl (80-96); MEAN PLT VOLUME 8.9 fl (7.5-11.1); MONO % 11.1 % (3.8-10.2); NEUT % 76.7 % (42.8-82.8); PLATELET COUNT 212 10^3/uL (134-434); RBC 3.79 M/mm3 (3.60-5.2); RDW 18.4 % (11.6-15.6); WHITE BLOOD COUNT 11.2 K/mm3 (4.0-10.0)
[2024-06-04 11:29] LABS: CHLORIDE 107 mmol/L (98-107); SODIUM 140 mmol/L (136-145)
[2024-06-04 11:31] LABS: ANION GAP 8 mmol/L (4-13); BLOOD UREA NITROGEN 12.8 mg/dL (7-18); CALCIUM 8.8 mg/dL (8.5-10.1); CO2 25 mmol/L (21-32); GLUCOSE,RANDOM 117 mg/dL (74-106); POTASSIUM 2.9 mmol/L (3.5-5.1)
[2024-06-04 11:32] LABS: ALBUMIN 2.8 g/dl (3.4-5.0)
[2024-06-04 11:34] LABS: SGOT/AST 14 U/L (15-37); SGPT/ALT 17 U/L (13-61)
[2024-06-04 11:35] LABS: CREATININE 0.8 mg/dL (0.55-1.3)
[2024-06-04 11:36] LABS: BILIRUBIN,TOTAL 1.4 mg/dL (0.2-1); TOT PROT 6.4 g/dl (6.4-8.2)
[2024-06-04 11:37] LABS: ALK PHOS 101 U/L (45-117)
[2024-06-04] MEDS: POTASSIUM CHLORIDE TABS 20 MEQ TABLET.ER (FP) PO SCH (12:36)
[2024-06-04] MEDS: ACETAMINOPHEN 1000 MG/100 ML BAG IVPB PRN (15:19)
[2024-06-04] MEDS ORDERED: CHLORHEXIDINE GLUCONATE 4% CLEANSER FOR DECOLONIZATION TP SCH (22:00)
[2024-06-04] MEDS: levETIRAcetam 500 MG TABLET (FP) PO SCH (22:05)
[2024-06-05 09:52] LABS: BASO % 0.4 % (0-2.0); EOS % 1.2 % (0-4.5); HEMATOCRIT 31.7 % (32.4-45.2); HEMOGLOBIN 10.5 GM/dL (10.7-15.3); LYMPH % 13.8 % (8-40); MCH 29.7 pg (25.7-33.7); MCHC 33.1 g/dl (32.0-36.0); MEAN CELL VOLUME 89.6 fl (80-96); MEAN PLT VOLUME 8.7 fl (7.5-11.1); MONO % 9.4 % (3.8-10.2); NEUT % 75.2 % (42.8-82.8); PLATELET COUNT 230 10^3/uL (134-434); RBC 3.54 M/mm3 (3.60-5.2); WHITE BLOOD COUNT 9.5 K/mm3 (4.0-10.0)
[2024-06-05] MEDS: PANTOPRAZOLE 40 MG TABLET PO SCH (10:05)
[2024-06-05 10:19] LABS: POTASSIUM 3.8 mmol/L (3.5-5.1)
[2024-06-05 10:26] LABS: ALBUMIN 2.7 g/dl (3.4-5.0); BLOOD UREA NITROGEN 12.3 mg/dL (7-18); CALCIUM 8.8 mg/dL (8.5-10.1)
[2024-06-05 10:28] LABS: TOT PROT 6.2 g/dl (6.4-8.2)
[2024-06-05 10:30] LABS: CREATININE 0.8 mg/dL (0.55-1.3)
[2024-06-05] MEDS: SODIUM CHLORIDE 1,000 ML IV SCH (11:30)
[2024-06-06 06:29] VITALS: RESP 20
[2024-06-06] MEDS: valACYclovir HCL 500 MG TABLET (FP) PO SCH (11:14)
[2024-06-06 11:43] VITALS: BP 135/85; PULSE 98; TEMP 98.8
[2024-06-09 13:07] LABS: WEST NILE VIRUS AB SERUM,IGM Negative (Negative)
== END 2024-06-06 11:48 | DRG 101 ==
LOC: JER 17:05 → JICU 21:26 → J8W 06-03 21:48
PROVIDERS: ADMIT Internal Medicine Pulmonary Disease
PROC: 5A1935Z Respiratory Ventilation, Less than 24 Consecutive Hours (ICD-10-PCS; principal; 2024-06-01)
PROC: 0BH17EZ Insertion of Endotracheal Airway into Trachea, Via Natural or Artificial Opening (ICD-10-PCS; 2024-06-01)
DX: G40.901 Epilepsy, unspecified, not intractable, with status epilepticus (principal); R47.01 Aphasia; I10 Essential (primary) hypertension; M75.100 Unspecified rotator cuff tear or rupture of unspecified shoulder, not specified as traumatic; I48.91 Unspecified atrial fibrillation; R06.89 Other abnormalities of breathing; E03.9 Hypothyroidism, unspecified; I25.10 Atherosclerotic heart disease of native coronary artery without angina pectoris
CPT/HCPCS: 0241U-QW; 36415; 70450-TC; 70496-TC; 70498-TC; 71045-TC-FY; 72125-TC; 73030-TC-RT-FY; 73610-TC-LT-FY; 80053; 81003; 82550; 82962; 83036; 83735; 84100; 84436; 84443; 84479; 84484; 85025; 85027; 85610; 86788; 86789; 87040; 87070; 87086; 87205; 93005; 93010; 94002; 97116-GP; 97161-GP; 99285-25; J0131; Q9967